=== PATIENT | female | born 1935 | race Caucasian/White ===

== ENCOUNTER → 2016-10-08 09:36 | Outpatient (CLI) | payer MEDICARE, BC ==
[2013-11-07 11:14] VITALS: BMI 24.4
[~2016-10-08 09:36] MED LIST: ADVAIR 100/501 DISK INH; ATIVAN1 MG PO; COUMADIN2.5 MG PO; COUMADIN5 MG PO; COZAAR50 MG PO; DUONEB 2.5-0.5 M3 ML UPD; LASIX40 MG PO; MICRO-K10 MEQ PO; MONODOX100 MG PO; MULTAQ400 MG PO; PRAVACHOL40 MG PO; PREDNISONE2.5 MG PO; RYTHMOL150 MG PO; STERAPRED DS 1210 MG PO
== END | disposition home or self-care (01) ==
LOC: D.RT 09:36
DX: J44.9 Chronic obstructive pulmonary disease, unspecified (principal)

== ENCOUNTER → 2017-01-08 12:26 | Outpatient (CLI) | payer MEDICARE, BC ==
[2013-11-07 11:14] VITALS: BMI 24.4
== END | disposition home or self-care (01) ==
LOC: D.US 01-07 13:30
DX: I65.23 Occlusion and stenosis of bilateral carotid arteries (principal)

== ENCOUNTER → 2017-05-01 15:28 | Outpatient (CLI) | payer MEDICARE, BC ==
[2013-11-07 11:14] VITALS: BMI 24.4
== END | disposition home or self-care (01) ==
LOC: D.CT 15:00
DX: I73.9 Peripheral vascular disease, unspecified (principal)

== ENCOUNTER 2017-05-08 09:21 | Outpatient (CLI) | payer MEDICARE, BC ==
--- NOTE | ~2017-05-08 | HEMODYNAMI ---
PATIENT:VANNESSA HANSEN MEDICAL RECORD: [id number] : 33 LOCATION:D.CAT ADMISSION DATE: 05/08/17 Generatedon:05/08/201712:54 Patient name: VANNESSA HANSEN Patient #: [id number] SSN: D OB: 1935 Date of study: 05/08/2017 Page: Of Hemodynamic Procedure Report Patient Data Patient Demographics Procedure consent was obtained First Name: VANNESSA Gender: Female Last Name: TYRONE : 1935 Middle Initial: S Age: 81 year(s) Patient #: [id number] Race: Unknown Additional ID: [id number] Contact details [address]: [address] [place] [address] State: [place] City: [place] Zip code: [address] Past Medical History Allergies Allergen Reaction Date Comments Reported Other allergy 05/08/2017 Nipride, Pravastatin, Codeine, Actonel Admission Admission Data Admission Date: 05/08/2017 Admission Time: 9:21 Height (in.): 65 BSA: 1.6 (m2) Height (cm.): 165.1 BMI: 20.3 (kg/m2) Weight (lbs.): 122 Weight (kg.): 55.34 Lab Results Lab Result Date: 05/08/2017 Lab Result Time: 0:00 Coagulation Name Units Result Min Max INR units 0.92 --(*---)-- 0.85 1.17 PT sec 12.2 --(*---)-- 11.6 15 Procedure Procedure Types Cath Procedure Miscellaneous Procedures Moderate Sedation up to 15 minutes Peripheral Cath Diagnostic Procedure Cath Peripheral Vrvkp-Inprczc-Enx-Off Peripheral vascular Intervention Stent Stent-Fem/Popw/plasty Procedure Description Procedure Date Procedure Date: 05/08/2017 Procedure Start Time: 12:21 Procedure End Time: 12:49 Procedure Staff Name Function Ángel Self MD Performing Physician Mart Carr RT Scrub Julio Balbuena RN Nurse Alona Myles RT Monitor Procedure Data Cath Procedure Fluoroscopy Diagnostic fluoroscopy Total fluoroscopy Time: time: 10.3 min 10.3 min Diagnostic fluoroscopy Total fluoroscopy dose: 167 dose: 167 mGy mGy Contrast Material Contrast Material Type Amount (ml) Isovue 300 85 Entry Location Entry Primary Successful Side Size Upsize Upsize Entry Closure Succes sful Closure Location (Fr) 1 (Fr) 2 (Fr) Remarks Device Remarks Femoral Right 5 Fr 6 Fr 6 Fr Exoseal artery Short Long Estimated blood loss: 10 ml Diagnostic catheters Device Type Used For End Catheter Placement Cordis Tempo 5Fr UF Procedure catheter Diagnostic Infinity 5Fr MPA-2 catheter Procedure Complications No complications Procedure Medications Medication Administration Route Dosage Oxygen NC 2 l/min Heparin Flush Bag added to field 2 bags (1000units/500ml NS) 0.9% NaCl I.V. 100 ml/hr Fentanyl I.V. 25 mcg Versed I.V. 0.5 mg Versed I.V. 0.5 mg Integrilin (Bolus I.V. 5 ml 2mg/ml) Heparin Bolus I.V. 4000 units Plavix P.O. 600 mg Hemodynamics Rest BSA: 1.6 (m2) O2 Consumption: Estimated: 134.96 (ml/min) O2 Consumption indexed: Estimated:84.35 (ml/min/m) Heart Rate: 56 (bpm) Snapshots Pre Cath Intra NCS Post Cath Vital Signs Time Heart Resp SPO2 NIBP (mmHg) Rhythm Pain Sedation Rate (ipm) (%) Status Level (bpm) 12:09:02 78 17 96 166/72(132) NSR 0 (11) 10(A) , No pain 12:13:22 75 20 98 174/76(128) NSR 0 (11) 10(A) , No pain 12:17:49 70 18 95 141/55(99) NSR 0 (11) 10(A) , No pain 12:22:09 68 17 100 134/57(100) NSR 0 (11) 9(A) , No pain 12:26:25 69 17 100 132/55(92) NSR 0 (11) 9(A) , No pain 12:30:41 70 17 100 135/54(86) NSR 0 (11) 9(A) , No pain 12:34:59 68 17 100 128/51(96) NSR 0 (11) 9(A) , No pain 12:39:15 68 19 100 128/51(89) NSR 0 (11) 9(A) , No pain 12:43:31 68 17 100 125/49(95) NSR 0 (11) 9(A) , No pain 12:47:45 70 21 100 138/51(99) NSR 0 (11) 9(A) , No pain Medications Time Medication Route Dose Verified Delivered Reason Notes Effectiveness by by 12:13:16 Oxygen NC 2 Ángel Kim Per physician l/min Clair Balbuena RN 12:13:27 Heparin Flush added 2 Ángel Kim used for Bag to bags Clair Balbuena RN procedure (1000units/500ml field NS) 12:13:38 0.9% NaCl I.V. 100 Ángel Kim Per physician ml/hr Clair Balbuena RN 12:21:05 Fentanyl I.V. 25 Ángel Kim for sedation mcg Clair Balbuena RN 12:21:13 Versed I.V. 0.5 Ángel Kim for sedation mg Clair Balbuena RN 12:27:35 Versed I.V. 0.5 Ángel Kim for sedation mg Clair Balbuena RN 12:27:50 Integrilin I.V. 5 ml Ángel Kim for (Bolus 2mg/ml) Clair Balbuena RN antiplatelet therapy 12:29:36 Heparin Bolus I.V. 4000 Ángel Kim for units Clair Balbuena RN anticoagulation 12:49:03 Plavix P.O. 600 Ángel Kim for mg Clair Balbuena RN antiplatelet therapy Procedure Log Time Note 11:45:19 Julio Balbuena RN sent for patient. Start room use. 11:55:16 Patient Height : 165.1 inches 11:55:22 Patient Weight : 55.34 lbs 11:56:16 Diagnostic Cath status Elective 11:56:20 Time tracking: Regular hours 11:56:25 Plan of Care:Hemodynamics will remain stable., Cardiac rhythm will remain stable., Comfort level will be maintained., Respiratory function will remain adequate., Patient/ family verbilizes understanding of procedure., Procedure tolerated without complication., Recovers from procedure without complications.. 11:59:49 Patient received from Pre/Post Procedure Room to CCL 2 Alert and oriented. Tansferred to table in Supine position. 11:59:51 Warm blankets applied, and luis armando hugger turned on for patient comfort. 11:59:51 Correct patient and procedure confirmed by team. 11:59:53 Signed procedure consent form obtained from patient. 11:59:53 ECG and BP/O2 sat monitors applied to patient. 12:05:44 Lab Result : INR 0.92 units 12:05:44 Lab Result : PT 12.2 sec 12:07:52 Vital chart was started 12:07:53 Baseline sample Acquired. 12:08:00 Rhythm: sinus rhythm 12:08:02 Full Disclosure recording started 12:08:26 H&P Date Dictated: 05/02/2017 Within 30 days and on chart., H&P Addendum completed by physician on day of procedure. (MUST COMPLETE FOR ALL OUTPATIENTS). 12:08:39 Pre-procedure instructions explained to patient. 12:08:42 Family in waiting room. 12:08:44 Patient NPO since Midnight. 12:09:32 Patient allergic to Other allergyNipride, Pravastatin, Codeine, Actonel 12:13:16 Oxygen 2 l/min NC was administered by Julio Balbuena RN; Per physician; 12:13:27 Heparin Flush Bag (1000units/500ml NS) 2 bags added to field was administered by Julio Balbuena RN; used for procedure; 12:13:38 0.9% NaCl 100 ml/hr I.V. was administered by Julio Balbuena RN; Per physician; 12:15:49 Is the patient allergic to Iodine/contrast media? No. 12:15:51 Was the patient premedicated? Yes 12:15:59 Is patient on blood thinner?Yes 12:16:03 Patient diabetic? No. 12:16:15 Snore? No 12:16:39 Airway obstruction? Yes COPD 12:16:45 Dentures? Yes OUT 12:16:56 IV patent on arrival in left hand with 0.9% NaCl at [facility]. 12:17:04 Lab results completed and on chart. 12:17:08 Bilateral groins area was prepped with chlora-prep and draped in sterile fashion 12:17:09 Alarms reviewed by R. N. 12:17:11 Sharps counted by scrub and verified by R.N. 12:17:12 Physician paged 12:17:15 Physician arrived 12::34 --------ALL STOP TIME OUT------ 12::35 Final Timeout: patient, procedure, and site verified with staff and physician. All members of the team are in agreement. 12:19:37 Bilateral groins site verified by team. 12:19:43 Sedation plan: IV Moderate Sedation Versed, Fentanyl 12:21:05 Fentanyl 25 mcg I.V. was administered by Julio Balbuena RN; for sedation; 12:21:13 Versed 0.5 mg I.V. was administered by Julio Balbuena RN; for sedation; 12:21:24 Use device set IR Diagnostic 12:21:30 Procedure started. 12:21:42 Local anesthetic to right femoral artery with Lidocaine 2% by Ángel Self MD.INITIAL ACCESS ONLY 12:21:54 Use device set Femoral Dx 12:21:58 Tegaderm 4 x 4 opened to sterile field. 12:22:01 Acist Manifold opened to sterile field. 12:22:02 Acist Hand Control opened to sterile field. 12:22:06 St Alvaro 260cm J .035 wire opened to sterile field. 12:22:08 Terumo 5Fr Meta Sheath opened to sterile field. 12:22:13 Medline Cath Pack opened to sterile field. 12:22:20 Bag Decanter opened to sterile field. 12:22:30 Acist Syringe opened to sterile field. 12:23:12 A 5 Fr sheath was inserted into the Right Femoral artery 12:23:16 J wire advanced. 12:23:35 A Codeship 5Fr UF catheter was advanced over the wire and used for Procedure. 12:23:50 Abdominal angiogram w/ runoff was performed. 12:23:54 Left leg runoff performed. 12:23:57 Right leg runoff performed. 12:25:23 Catheter removed. 12:25:24 Proceeding to intervention. 12:25:47 Sheath upsized to a 6 Fr Short. 12:26:50 Terumo 6Fr Meta Destination Sheath opened to sterile field. 12:27:35 Versed 0.5 mg I.V. was administered by Julio Balbuena RN; for sedation; 12::35 Terumo 6Fr Meta Sheath opened to sterile field. 12:27:35 Merit BasixCompak Inflation Kit opened to sterile field. 12:27:50 Integrilin (Bolus 2mg/ml) 5 ml I.V. was administered by Julio Balbuena RN; for antiplatelet therapy; 12:28:25 Terumo ANGLE 260cm glide wire opened to sterile field. 12:29:36 Heparin Bolus 4000 units I.V. was administered by Julio Balbuena RN; for anticoagulation; 12:29:52 A Diagnostic Infinity 5Fr MPA-2 catheter was advanced over the wire and used for .used to go over the horn and left leg angiography 12:30:47 Terumo TORQUE DEVICE PLASTIC .038 opened to sterile field. 12:31:35 Catheter removed. 12:31:49 Sheath upsized to a 6 Fr Long. 12:32:47 Soundflavor Choice PT Extra Support J 300cm .014 gu opened to sterile field. 12:32:51 Wire removed. 12:33:07 choice pt wire advanced. 12:36:53 Inflation number: 1 A Saber 5.0 X 4 X 150 balloon was prepped and advanced across the Distal Superficial Femoral, Left, then inflated to 5 MATILDA for 0:52 (min:sec). 12:37:15 Inflation number: 2 The Saber 5.0 X 4 X 150 balloon was reinflated across the Distal Superficial Femoral, Left, to 5 MATILDA for 0:15 (min:sec). 12:39:00 Balloon removed. 12:41:10 Cordis SMART 6 X 120 X 120 stent was deployed across Distal Superficial Femoral, Left . 12:41:16 Stent removed. 12:42:26 Inflation number: 3 The Saber 5.0 X 4 X 150 balloon was reinflated across the Distal Superficial Femoral, Left, to 13 MATILDA for 0:00 (min:sec). 12:42:32 Inflation number: 4 The Saber 5.0 X 4 X 150 balloon was reinflated across the Distal Superficial Femoral, Left, to 7 MATILDA for 0:00 (min:sec). 12:43:08 Balloon removed. 12:43:10 Wire removed. 12:43:26 Cordis 6Fr Exoseal opened to sterile field. 12:44:32 Sheath removed intact; hemostasis achieved with Exoseal to the Right Femoral artery. 12:44:52 Procedure ended.(Physican Out) 12:45:02 Fluoroscopy time 10.30 minutes. 12:45:59 Fluoroscopy dose: 167 mGy 12:45:59 Flurop Dose total: 167 12:46:03 Contrast amount:Isovue 300 85ml. 12:46:04 Sharps counted by scrub and verified by R.N. 12:46:07 Insertion/operative site no bleeding no hematoma. 12:46:29 Post-op/insertion site Right Femoral artery dressed using a 4 x 4 and Tegaderm. 12:46:34 Post right femoral artery:stable 12:46:36 Post Procedure Pulses reassessed and unchanged 12:46:46 Estimated blood loss: 10 ml 12:46:47 Post procedure instruction explained to patient.Patient verbalizes understanding. 12:48:23 Procedure type changed to Cath procedure, Miscellaneous Procedures, Moderate Sedation up to 15 minutes, Peripheral Cath Diagnostic Procedure, Cath Peripheral, Mpgcn-Hpapetc-Rlo-Off, Peripheral vascular Intervention, Stent, Stent-Fem/Popw/plasty 12:48:26 Procedure and supply charges have been captured, reviewed, submitted and are correct. 12:48:56 Procedure Complication : No complications 12:49:01 Vital chart was stopped 12:49:02 See physician's report for complete and final results. 12:49:03 Plavix 600 mg P.O. was administered by Julio Balbuena RN; for antiplatelet therapy; 12:49:04 Report given to Pre/Post Procedure Room. 12:49:07 Patient transfered to Pre/Post Procedure Room with Stretcher. 12:49:09 Procedure ended. 12:49:09 Full Disclosure recording stopped 12:49:12 End room use (Document Last) Intervention Summary Intervention Notes Time ActionType Lesion and Equipment Action# Pressure Duration Attributes Used 12:36:53 Inflate Distal Saber 5.0 1 5 00:52 balloon Superficial X 4 X 150 Femoral, balloon Left 12:37:15 Reinflate Distal Saber 5.0 2 5 00:15 balloon Superficial X 4 X 150 Femoral, balloon Left 12:41:10 Deploy self Distal Cordis 1 expanding Superficial SMART 6 X stent Femoral, 120 X 120 Left stent 12:42:26 Reinflate Distal Saber 5.0 3 13 00:00 balloon Superficial X 4 X 150 Femoral, balloon Left 12:42:32 Reinflate Distal Saber 5.0 4 7 00:00 balloon Superficial X 4 X 150 Femoral, balloon Left Device Usage Item Name Manufacture Quantity Catalog Number Hospital Part Current Minim al Lot# / Charge Number Stock Stock Serial# Code Tegaderm 4 3M 1 [id number] 923498 486350 5 x 4 Acist Acist 1 79406 708005 097920 617389 5 Manifold Medical Systems Inc Acist Hand Acist 1 20160 785028 088452 980510 [address] Alvaro 1 [id number] 659575 982958 463973 30 260cm J .035 wire Terumo 5Fr Terumo 1 [id number] 304689 109884 470541 40 Meta Sheath Medline Cardinal 1 [id number] 234544 88084 220020 5 Cath Pack Health Bag Microtek 1 2002S 736491 86572 623805 5 Decanter Medical Inc. Acist Acist 1 71571 462494 840614 707295 20 Syringe Medical Systems Inc Cordis Cardinal 1 [id number] 073652 360107 071278 10 Tempo 5Fr Health UF catheter Terumo 6Fr Terumo 1 RSR01 346092 95648 881322 5 Meta Destination Sheath Terumo 6Fr Terumo 1 [id number] 431914 045979 333625 40 Meta Sheath Merit Merit 1 [id number] 945006 316065 317558 15 LoveThatFitixGamma 2 Robotics Medical Inflation Kit Terumo Terumo 1 [id number] 616723 204625 741565 5 ANGLE 260cm glide wire Diagnostic Cardinal 1 [id number] 154274 470257 917610 5 Infinity Health 5Fr MPA-2 catheter Terumo Hewett 1 TD01 137517 064539 520136 5 TORQUE Scientific DEVICE PLASTIC .038 Hewett Sci Hewett 1 [id number] 705380 393111 887646 5 Choice PT Scientific Extra Support J 300cm .014 gu Saber 5.0 X Cardinal 1 [id number] 514657 099923 5 4 X 150 Health balloon Cordis Cardinal 1 [id number] 084443 926774 0 [id number] SMART 6 X Health 120 X 120 stent Cordis 6Fr Cardinal 1 [id number] 236317 010770 123547 10 Exoseal Health Signature Audit [place] Stage Time Signature Unsigned Intra-Procedure 05/08/2017 Alona Bueno 12:54:19 PM RT(R) Signatures Monitor : Alona Bueno Signature : RT Date : Time : [place] [id number] [place] [address]
[2017-05-08] MEDS ORDERED: BUMEX 1 MG TAB1 MG PO (10:06)
[2017-05-08] MEDS ORDERED: BETAPACE 80 MG80 MG PO (10:07)
[2017-05-08] MEDS ORDERED: LANOXIN125 MCG PO (10:07)
[2017-05-08] MEDS ORDERED: ELAVIL10 MG PO (10:08)
[2017-05-08] MEDS ORDERED: METOLAZONE2.5 MG PO (10:08)
[2017-05-08 10:16] VITALS: BP 181/63; BMI 21.6
[2017-05-08 10:57] LABS: BASOPHILS 0.3 % (0-2); EOSINOPHILS 1.5 % (0-7); HEMATOCRIT 41.9 % (36.0-48.0); HEMOGLOBIN 14.1 g/dL (12-16); IMMATURE GRANULOCYTES 0.2 % (0-5); MCHC 33.7 g/dL (31.0-37.0); MCV 89.1 fL (80.0-100.0); MONOCYTES 7.8 % (2-11); NEUTROPHILS 72.2 % (40-80); RDW 13.1 % (11.5-14.5); WBC 10.6 10x3/uL (4.8-10.8)
[2017-05-08 11:03] LABS: INR 0.92 (0.85-1.17); PROTIME 12.2 SECONDS (11.6-15.0)
[2017-05-08 11:08] LABS: ANION GAP 9.3 mmol/L (8-16); CARBON DIOXIDE 32.3 mmol/L (21.0-32.0); CREATININE - SERUM 0.9 mg/dL (0.6-1.3); POTASSIUM - SERUM 3.6 mmol/L (3.5-5.1)
[2017-05-08 11:12] LABS: PLATELET COUNT 282 10x3/uL (130-400)
[2017-05-08] MEDS ORDERED: PLAVIX75 MG PO (13:04)
--- NOTE | 2017-05-08 13:15 | NUR ---
1315 RECEIVED PT FROM DISTILLERY MILLER HELPER, PT IS DRY HEAVING, PRESSURE HELD AT CATH SITE BY MASTER CONTROL SUPERVISOR. PT DENIES ANY C/O CHEST PAIN. DRESSING TO RIGHT GROIN REMAINS CDI. DAUGHTERS AT BEDSIDE.
--- NOTE | 2017-05-08 13:47 | NUR ---
1332 ZOFRAN 4 MG IV FOR NAUSEA, DRY HEAVING. RIGHT GROIN REMAINS STABLE WITH NO BLEEDING OR HEMATOMA NOTED. PEDAL PULSES PRESENT X4 BY DOPPLER. DAUGHTERS AT BEDSIDE, CALL LIGHT IN REACH.
--- NOTE | 2017-05-08 13:50 | NUR ---
1350 PT STATES NAUSEA IMPROVING. DRESSING TO RIGHT GROIN IS CDI, AREA IS SOFT AND NONTENDER. PULSES PRESENT X4 BY DOPPLER. PT STATES WANTS TO TRY A NAP. CALL LIGHT IN REACH. NO FAMILY AT BEDSIDE AT THIS TIME.
--- NOTE | 2017-05-08 14:15 | NUR ---
1415 PT SLEEPING, AWAKENS WITH GROIN CHECK, DENIES ANY C/O. DRESSING TO RIGHT GROIN IS CDI, AREA IS SOFT AND NONTENDER. PEDAL PULSES PRESENT BY DOPPLER. PT STATES NAUSEA IMPROVED. CALL LIGHT IN REACH.
--- NOTE | 2017-05-08 14:58 | NUR ---
1450 PT SLEEPING, RR EVEN AND UNLABORED. DRESSING RIGHT GROIN IS CDI, AREA IS SOFT AND NONTENDER. NO FAMILY AT BEDSIDE, CALL LIGHT IS IN REACH.
--- NOTE | 2017-05-08 15:23 | NUR ---
1515 DRESSING CDI RIGHT GROIN, AREA SOFT AND NONTENDER. PT DENIES ANY C/O. VSS. RR EVEN AND UNLABORED. CALL LIGHT IN REACH.
--- NOTE | 2017-05-08 16:00 | NUR ---
1600 PT SLEEPING, DRESSING TO RIGHT GROIN IS CDI, AREA IS SOFT WITH NO HEMATOMA NOTED. VSS, RR EVEN AND UNLABORED, CALL LIGHT IN REACH. NO FAMILY AT BEDSIDE.
--- NOTE | 2017-05-08 16:30 | NUR ---
1630 PT AWAKENED, REQUESTS BEDPAN AND PT VOIDED APPROX 500 CC CLEAR YELLOW URINE USING BEDPAN.
--- NOTE | 2017-05-08 16:40 | NUR ---
HOB ELEVATED 45 DEGREES, SANDWICH AND PO FLUIDS SERVED. PT DENIES ANY C/O NAUSEA AT THIS TIME. DRESSING TO RIGHT GROIN IS CDI, AREA IS SOFT WITH NO HEMATOMA NOTED.
--- NOTE | 2017-05-08 16:45 | NUR ---
9955 PT'S DAUGHTER AT BEDSIDE. DC INSTRUCTIONS REVIEWED WITH PT AND DAUGHTER WHO VERBALIZE UNDERSTANDING. PT DENIES ANY C/O CHEST PAIN OR NAUSEA. STATES SOME TENDERNESS TO CATH SITE, DRESSING REMAINS CDI, AREA IS SOFT WITH NO HEMATOMA NOTED.
--- NOTE | 2017-05-08 17:19 | NUR ---
1710 NURSE ASSISTED PT WITH DRESSING FOR DC TO HOME. DRESSING TO RIGHT GROIN IS CDI, AREA IS SOFT WITH NO HEMATOMA NOTED. PT DENIES ANY C/O CHEST PAIN OR NAUSEA. PT ESCORTED TO PRIVATE AUTO VIA WC BY NURSE WTIH DAUGHTER DRIVING HER HOME.
--- NOTE | 2017-05-10 13:09 | OP ---
PATIENT NAME: VANNESSA HANSEN MEDICAL RECORD: [id number] :33 LOCATION:D.CAT ADMISSION DATE: SURGEON: SHAYNA NGO MD DATE OF OPERATION: 05/08/2017 PROCEDURES: 1. Stent placement SFA, left. 2. CLERK RATING to SFA, left. 3. Aortofemoral runoff. 4. Abdominal aortography. INDICATION: Claudication and peripheral vascular disease. PROCEDURE IN DETAIL: After informed consent was obtained and after detailed explanation of risks, benefits as well as alternative therapies, the patient elected to proceed with angiogram and angioplasty. The right femoral area was prepped and draped in normal sterile fashion. The right femoral artery was cannulated via modified Seldinger technique with placement of 6-Northern Irish sheath. All catheters was exchanged through this sheath. At the end of the case, all catheters were removed, sheaths also removed. Hemostasis was obtained via ExoSeal and direct compression. She tolerated the procedure well with no complication, returned back to the room in stable hemodynamic condition. FINDINGS: The abdominal aortography was performed. The catheter was pulled down for aortofemoral runoff. Abdominal aortography reveals no significant abdominal aortic disease. No dissection or aneurysm formation. RIGHT LEG: A. Iliac: The common internal and external iliacs have moderate irregularities, but no flow-limiting stenosis. B. Femoral system: The common and deep femoral are widely patent. Superficial femoral has multiple areas of 90% stenosis. C. Popliteal and infrapopliteal vessels are patent giving 3-vessel runoff to the foot, although mildly diffusely diseased. LEFT LEG: A. Iliac. The common iliac has an 80% stenosis, otherwise the iliacs have mild irregularities. B. Femoral system: The common and deep femoral are widely patent. The superficial femoral has a 99% stenosis as well as a 90% stenosis times 2 in the distal vessel. C. Popliteal and infrapopliteal vessels are widely patent with good 3-vessel runoff to the foot. CLERK RATING STENT OF THE LEFT SFA: SFA was addressed with a 5.0 balloon yielding suboptimal result with severe intimal dissection. Stenting was undertaken with a 6 x 120 SMART stent. Result was 0% residual stenosis. OVERALL IMPRESSION: Successful CLERK RATING stent of the left SFA going from 99% initial stenosis to 0% residual stenosis. PLAN: For CLERK RATING stent of the right SFA in the near future and addressing the left iliac at that time. TRANSINT:[id number] Voice Confirmation ID: [id number] DOCUMENT ID: [id number] OPERATIVE REPORT [id number] VANNESSA HANSEN JEFFREY MD at 1309 CC: [id number] DICTATION DATE: 05/08/17 1248 COMMERCIAL INTERN: 05/08/17 1301 DEP CLI 05/08/17 [place] [id number] [place] [id number]
[2017-09-16] MEDS ORDERED: ZOCOR10 MG PO (10:23)
[2017-09-16] MEDS ORDERED: SINGULAIR10 MG PO (17:16)
== END 2017-05-08 17:10 | disposition home or self-care (01) ==
LOC: D.CATH 09:21
PROVIDERS: Internal Medicine Interventional Cardiology
DX: I70.212 Atherosclerosis of native arteries of extremities with intermittent claudication, left leg (principal); Z01.812 Encounter for preprocedural laboratory examination

== ENCOUNTER → 2017-05-15 09:34 | Outpatient (CLI) | payer MEDICARE, BC ==
--- NOTE | ~2017-05-15 | HEMODYNAMI ---
PATIENT:VANNESSA HANSEN MEDICAL RECORD: [id number] : 33 LOCATION:[facility] ADMISSION DATE: 05/15/17 Generatedon:05/15/201713:12 Patient name: VANNESSA HANSEN Patient #: [id number] SSN: D OB: 1935 Date of study: 05/15/2017 Page: Of Hemodynamic Procedure Report Patient Data Patient Demographics Procedure consent was obtained First Name: VANNESSA Gender: Female Last Name: TYRONE : 1935 Middle Initial: S Age: 81 year(s) Patient #: [id number] Race: Unknown Additional ID: [id number] Contact details [address]: [address] [place] [address] State: [place] City: [place] Zip code: [address] Past Medical History Allergies Allergen Reaction Date Comments Reported Other allergy 05/08/2017 Nipride, Pravastatin, Codeine, Actonel Admission Admission Data Admission Date: 05/15/2017 Admission Time: 9:34 Admit Source: Other Lab Results Lab Result Date: 05/15/2017 Lab Result Time: 0:00 Biochemistry Name Units Result Min Max BUN mg/dl 24 --(----)-* 7 18 Creatinine mg/dl 1 --(--*-)-- 0.6 1.3 CBC Name Units Result Min Max Hemoglobin g/dl 13.7 --(*---)-- 13.5 17.5 Procedure Procedure Types Cath Procedure Peripheral vascular Intervention Stent Stent-Fem/Popw/plasty Procedure Description Procedure Date Procedure Date: 05/15/2017 Procedure Start Time: 12:35 Procedure End Time: 13:09 Procedure Staff Name Function Ángel Self MD Performing Physician Mart Carr RT Scrub Julio Balbuena RN Nurse Brenda Palafox RT Monitor Madison Duffy RT Monitor Rodrigue Maria RT Monitor Procedure Data Cath Procedure Fluoroscopy Diagnostic fluoroscopy Total fluoroscopy Time: 12 time: 12 min min Diagnostic fluoroscopy Total fluoroscopy dose: 85 dose: 85 mGy mGy Contrast Material Contrast Material Type Amount (ml) Isovue 300 86 Entry Location Entry Primary Successful Side Size Upsize Upsize Entry Closure Succes sful Closure Location (Fr) 1 (Fr) 2 (Fr) Remarks Device Remarks Femoral Left 6 Fr 6 Fr 6 Fr Exoseal artery Short Long Short Estimated blood loss: 10 ml Diagnostic catheters Device Type Used For End Catheter Placement Cordis Tempo 5Fr UF Procedure catheter Diagnostic Infinity 5Fr Procedure MPA-2 catheter Procedure Complications No complications Procedure Medications Medication Administration Route Dosage 0.9% NaCl I.V. 100 ml/hr Oxygen NC 2 l/min Heparin Flush Bag added to field 2 bags (1000units/500ml NS) Lidocaine 2% added to field 20 Versed I.V. 0.5 mg Fentanyl I.V. 25 mcg Heparin Bolus I.V. 4000 units Fentanyl I.V. 25 mcg Versed I.V. 0.5 mg Hemodynamics Rest HGB: 13.7 (g/dl) Heart Rate: 79 (bpm) Snapshots Pre Cath Intra NCS Post Cath Vital Signs Time Heart Resp SPO2 etCO2 NIBP (mmHg) Rhythm Pain Sedation Rate (ipm) (%) (mmHg) Status Level (bpm) 12:27:40 77 17 98 0 154/72(120) NSR 0 (11) 10(A) , No pain 12:32:23 73 16 99 0 122/53(90) NSR 0 (11) 10(A) , No pain 12:37:01 72 14 99 0 118/50(92) NSR 0 (11) 9(A) , No pain 12:41:38 73 16 98 0 119/53(92) NSR 0 (11) 9(A) , No pain 12:46:14 74 16 99 0 123/50(92) NSR 0 (11) 9(A) , No pain 12:50:53 66 17 99 0 126/49(101) NSR 0 (11) 9(A) , No pain 12:55:29 79 18 99 0 136/54(95) NSR 0 (11) 9(A) , No pain 13:00:08 74 16 98 0 139/58(99) NSR 0 (11) 9(A) , No pain 13:04:47 74 15 98 0 134/60(101) NSR 0 (11) 9(A) , No pain Medications Time Medication Route Dose Verified Delivered Reason Notes Effectiveness by by 12:31:10 0.9% NaCl I.V. 100 Dionte Dionte Per physician ml/hr Randal Tee RN RN 12:31:23 Oxygen NC 2 Dionte Dionte Per physician l/min Randal Tee RN RN 12:31:40 Heparin Flush added 2 Dionte Dionte used for Bag to bags Randal Tee procedure (1000units/500ml field RN RN NS) 12:31:53 Lidocaine 2% added 20ml Dionte Dionte for local to vial Randal Tee anesthetic field RN RN 12:35:25 Versed I.V. 0.5 Dionte Dionte for sedation mg Randal Tee RN RN 12:35:48 Fentanyl I.V. 25 Dionte Dionte for sedation mcg Randal Tee RN RN 12:43:17 Heparin Bolus I.V. 4000 Dionte Dionte for units Lormitchell Tee anticoagulation RN RN 12:56:22 Fentanyl I.V. 25 Dionte Dionte for sedation mcg Randal Tee RN RN 12:58:16 Versed I.V. 0.5 Dionet Dionte for sedation mg Randal Tee RN air brake worker Log Time Note 11:45:41 Julio Balbuena RN sent for patient. Start room use. 12:17:18 Informed consent obtained and on chart 12:17:38 Admit Source: Other 12:17:40 Diagnostic Cath status Elective 12:17:42 Time tracking: Regular hours 12:17:47 Plan of Care:Hemodynamics will remain stable., Cardiac rhythm will remain stable., Comfort level will be maintained., Respiratory function will remain adequate., Patient/ family verbilizes understanding of procedure., Procedure tolerated without complication., Recovers from procedure without complications.. 12:17:51 Patient received from Pre/Post Procedure Room to CCL 1 Alert and oriented. Tansferred to table in Supine position. 12:17:52 Warm blankets applied, and luis armando hugger turned on for patient comfort. 12:17:53 Correct patient and procedure confirmed by team. 12:17:53 ECG and BP/O2 sat monitors applied to patient. 12:26:50 Vital chart was started 12:26:53 Full Disclosure recording started 12:26:57 H&P Date Dictated: 05/15/2017 Within 30 days and on chart., H&P Addendum completed by physician on day of procedure. (MUST COMPLETE FOR ALL OUTPATIENTS). 12::59 Pre-procedure instructions explained to patient. 12::59 Pre-op teaching completed and patient verbalized understanding. 12:27:05 Family unavailable. 12:27:07 Patient NPO since Midnight. 12:27:12 Is the patient allergic to Iodine/contrast media? No. 12:27:13 Was the patient premedicated? No 12:27:14 Is patient on blood thinner?Yes 12:27:18 ACC The patient was administered the following blood thiners within the last 24 hours: ACCPlavix 12:27:25 Patient diabetic? No. 12:27:28 Previous problem with sedation/anesthesia? No ? 12:27:35 Snore? No 12:27:36 Sleep apnea? Yes 12:27:37 Deviated septum? No 12::38 Opens mouth fully? Yes 12:27:39 Sticks out tongue? Yes 12:27:45 Airway obstruction? Yes copd 12:27:49 Dentures? Yes in tight 12:27:55 Pre procedure: right dorsailis pedis pulse 1+ Palpable, but thready & weak; easily obliterated 12:27:57 Pre procedure: left dorsailis pedis pulse 1+ Palpable, but thready & weak; easily obliterated 12::59 Patient pain scale 0/10 ?. 12:28:07 IV patent on arrival in left forearm with 0.9% NaCl at [facility]. 12:28:27 Lab Result : BUN 24 mg/dl 12:28:27 Lab Result : Creatinine 1 mg/dl 12::27 Lab Result : Hemoglobin 13.7 g/dl 12::31 Lab results completed and on chart. 12::34 Bilateral groins area was prepped with chlora-prep and draped in sterile fashion 12:28:36 Alarms reviewed by R. N. 12:28:36 Sharps counted by scrub and verified by R.N. 12::38 Physician arrived 12::38 --------ALL STOP TIME OUT------ 12::39 Final Timeout: patient, procedure, and site verified with staff and physician. All members of the team are in agreement. 12:28:40 Bilateral groins site verified by team. 12::43 Physical assessment completed. ASA score P 2 - A patient with mild systemic disease as per Ángel Self MD. 12::47 Sedation plan: IV Moderate Sedation Versed, Fentanyl 12::57 Use device set Femoral PCI 12::58 Acist Syringe opened to sterile field. 12::58 Acist Hand Control opened to sterile field. 12::58 Bag Decanter opened to sterile field. 12::59 Medline Cath Pack opened to sterile field. 12::59 Terumo 6Fr Chula Sheath opened to sterile field. 12:29:00 St Alvaro 260cm J .035 wire opened to sterile field. 12::00 Merit BasixCompak Inflation Kit opened to sterile field. 12:: Acist Manifold opened to sterile field. 12:: Tegaderm 4 x 4 opened to sterile field. 12:31:10 0.9% NaCl 100 ml/hr I.V. was administered by Dionte Tee RN; Per physician; 12:31:15 Baseline sample Acquired. 12:31:23 Oxygen 2 l/min NC was administered by Dionte Tee RN; Per physician; 12:31:40 Heparin Flush Bag (1000units/500ml NS) 2 bags added to field was administered by Dionte Tee RN; used for procedure; 12::53 Lidocaine 2% 20ml vial added to field was administered by Dionte Tee RN; for local anesthetic; 12:34:27 Procedure started. 12:35:00 Terumo TORQUE DEVICE PLASTIC .038 opened to sterile field. 12:35:01 Terumo ANGLE 260cm glide wire opened to sterile field. 12:35:02 Terumo 6Fr [place]ula Destination Sheath opened to sterile field. 12:35:08 Zero performed for pressure channel P1 12:35:25 Versed 0.5 mg I.V. was administered by Dionte Tee RN; for sedation; 12::43 Local anesthetic to left femerol artery with Lidocaine 2% by Ángel Self MD.INITIAL ACCESS ONLY 12:35:48 Fentanyl 25 mcg I.V. was administered by Dionte Tee RN; for sedation; 12:36:45 A 6 Fr Short sheath was inserted into the Left Femoral artery 12:37:01 A Tipstar 5Fr UF catheter was advanced over the wire and used for Procedure. 12:37:19 GLIDE wire advanced. 12:37:46 GLIDE WIRE ADVANCED AROUND THE HORN AND DOWN THE RIGHT LEG 12:38:44 Wire advanced across lesion. 12:39:07 Guide catheter removed. 12:39:26 Sheath upsized to a 6 Fr Long. 12:39:42 SHEATH ADVANCED AROUND THE HORN 12:40:31 A Diagnostic Infinity 5Fr MPA-2 catheter was advanced over the wire and used for Procedure. 12:41:16 Wire removed. 12:41:25 Catheter removed. 12:43:13 Terumo 5FR STRAIGHT 100CM glide catheter opened to sterile field. 12:43:17 Heparin Bolus 4000 units I.V. was administered by Dionte Tee RN; for anticoagulation; 12:43:22 [place] WhereNet Choice PT Extra Support J 300cm .014 gu opened to sterile field. 12:43:42 GLIDE CATHETER AND GLIDE WIRE ADVANCED 12:46:29 WIRE AND CATHETER ACROSS LESION. 12:46:50 WIRE EXCHANGED FOR CHOICE PT EXTRA SUPPORT 12:47:23 Catheter exchanged over wire. 12:49:03 Inflation number: 1 A Saber 5.0 x 8 x 150 balloon was prepped and advanced across the Mid Superficial Femoral, Right, then inflated to 9 MATILDA for 0:10 (min:sec). 12:49:21 MULTIPLE INFLATIONS MADE AT 11ATMS 12:51:49 Cordis SMART 6 X 150 X 120 stent was deployed across Mid Superficial Femoral, Right . 12:51:54 Stent catheter was removed intact over wire. 12:54:57 Cordis SMART 6 x 100 x 120 stent was deployed across Mid Superficial Femoral, Right . 12:55:02 Stent catheter was removed intact over wire. 12:55:25 Inflation number: 2 The Saber 5.0 x 8 x 150 balloon was reinflated across the Mid Superficial Femoral, Right, to 13 MATILDA for 0:10 (min:sec). 12:55:38 MULTIPLE INFLATIONS MADE AT 13ATMS 12:56:22 Fentanyl 25 mcg I.V. was administered by Dionte Tee RN; for sedation; 12:58:16 Versed 0.5 mg I.V. was administered by Dionte Tee RN; for sedation; 12:58:46 Inflation number: 3 The Saber 5.0 x 8 x 150 balloon was reinflated across the Mid Superficial Femoral, Right, to 7 MATILDA for 0:10 (min:sec). 13:00:01 Balloon removed over the wire. 13:00:09 Cordis SMART Flex 5 X 30 X 120 stent was deployed across Mid Superficial Femoral, Right . 13:01:26 Stent catheter was removed intact over wire. 13:01:54 Wire removed. 13:02:07 Sheath upsized to a 6 Fr Short. 13:02:47 Cordis 6Fr Exoseal opened to sterile field. 13:03:05 Sheath removed intact; hemostasis achieved with Exoseal to the Left Femoral artery. 13:03:11 Procedure ended.(Physican Out) 13:03:33 Fluoroscopy time 12.00 minutes. 13:03:39 Fluoroscopy dose: 85 mGy 13:03:39 Flurop Dose total: 85 13:03:46 Contrast amount:Isovue 300 86ml. 13:03:53 Sharps counted by scrub and verified by R.N. 13:04:30 Post-op/insertion site Left Femoral artery dressed using a 4 x 4 and Tegaderm. 13:04:32 Post Procedure Pulses reassessed and unchanged 13:04:39 Post procedure: left dorsailis pedis pulse 1+ Palpable, but thready & weak; easily obliterated. 13:04:44 Post-procedure physical assessment completed. ASA score P 2 - A patient with mild systemic disease as per Ángel Self MD. 13:04:50 Post procedure rhythm: unchanged. 13:04:53 Estimated blood loss: 10 ml 13:04:55 Post procedure instruction explained to patient.Patient verbalizes understanding. 13:04:55 Patient needs reinforcement of post procedure teaching. 13:05:26 Procedure type changed to Cath procedure, Peripheral vascular Intervention, Stent, Stent-Fem/Popw/plasty 13:08:34 Procedure and supply charges have been captured, reviewed, submitted and are correct. 13:08:39 Procedure Complication : No complications 13:08:44 Vital chart was stopped 13:08:47 See physician's report for complete and final results. 13:09:02 Report given to Pre/Post Procedure Room. 13:09:07 Patient transfered to Pre/Post Procedure Room with Stretcher. 13:09:10 Procedure ended. 13:09:10 Full Disclosure recording stopped 13:09:18 End room use (Document Last) 13:11:20 Post left femerol artery:stable, oozing 13:11:34 Femstop placed over the left femerol artery at 180 mmHg. Hemostasis achieved. Intervention Summary Intervention Notes Time ActionType Lesion and Equipment Action# Pressure Duration Attributes Used 12:49:03 Inflate Mid Saber 5.0 1 9 00:10 balloon Superficial x 8 x 150 Femoral, balloon Right 12:51:49 Deploy self Mid Cordis 1 11 expanding Superficial SMART 6 X stent Femoral, 150 X 120 Right stent 12:54:57 Deploy self Mid Cordis 1 expanding Superficial SMART 6 x stent Femoral, 100 x 120 Right stent 12:55:25 Reinflate Mid Saber 5.0 2 13 00:10 balloon Superficial x 8 x 150 Femoral, balloon Right 12:58:46 Reinflate Mid Saber 5.0 3 7 00:10 balloon Superficial x 8 x 150 Femoral, balloon Right 13:00:09 Deploy self Mid Cordis 1 expanding Superficial SMART stent Femoral, Flex 5 X Right 30 X 120 stent Device Usage Item Name Manufacture Quantity Catalog Number Hospital Part Current Minim al Lot# / Charge Number Stock Stock Serial# Code Acist Acist 1 [id number] [id number] 280854 613162 20 Syringe Medical Systems Inc Acist Hand Acist 1 25028 059054 958849 626373 5 Control Medical Systems Inc Bag Microtek 1 2002S 092620 64828 784500 5 [place] Medline Cardinal 1 [id number] 258757 22714 316828 5 Cath Pack Health Terumo 6Fr Terumo 1 [id number] 946445 506870 562343 [address] St Alvaro 1 000766 734730 240683 047581 30 260cm J .035 wire Merit Merit 1 NB0038 707704 450796 292991 15 Opeepl Medical Inflation Kit Acist Acist 1 55658 782140 014564 425646 5 Manifold Medical Systems Inc Tegaderm 4 3M 1 1626W 225775 841620 847973 5 x 4 Terumo [place] 1 TD01 148655 714751 437545 5 TORQUE Scientific DEVICE PLASTIC .038 Terumo Terumo 1 [id number] 459127 632812 650586 5 ANGLE 260cm glide wire Terumo 6Fr Terumo 1 RSR01 510333 93540 167910 5 Chula Destination Sheath Cordis Cardinal 1 [id number] 613639 624539 088048 10 Tempo 5Fr Health UF catheter Diagnostic Cardinal 1 [id number] 961729 205977 114829 5 Infinity Health 5Fr MPA-2 catheter Terumo 5FR Terumo 1 CG506 682161 47846 316695 4 STRAIGHT 100CM glide catheter [place] Sci [place] 1 [id number] 201204 139024 292287 5 Choice PT Scientific Extra Support J 300cm .014 gu Saber 5.0 x Cardinal 1 [id number] 042102 964530 300490 5 8 x 150 Health balloon Cordis Cardinal 1 [id number] 261416 352017 0 [id number] SMART 6 X Health 150 X 120 stent Cordis Cardinal 1 [id number] 196813 152538 0 [id number] SMART 6 x Health 100 x 120 stent Cordis Cardinal 1 [id number] 803479 458040 0 19555 SMART Flex Health 5 X 30 X 120 stent Cordis 6Fr Cardinal 1 EX600 060088 798580 532370 10 [facility] Health Signature Audit [place] Stage Time Signature Unsigned Intra-Procedure 05/15/2017 Madison Duffy 1:12:06 PM RT(R) Signatures Monitor : Brenda Palafox RT Signature : Date : Time : Monitor : Madison Duffy Signature : RT Date : Time : Monitor : Rodrigue Maria RT Signature : Date : Time : [id number] [place] [address]
[~2017-05-15 09:34] MED LIST changes: +BETAPACE 80 MG80 MG PO; +BUMEX 1 MG TAB1 MG PO; +ELAVIL10 MG PO; +LANOXIN125 MCG PO; +METOLAZONE2.5 MG PO; +PLAVIX75 MG PO; +SINGULAIR10 MG PO; +ZOCOR10 MG PO
[2017-05-15 09:46] VITALS: BP 158/58; BMI 21.0
[2017-05-15 10:00] LABS: BASOPHILS 0.7 % (0-2); HEMATOCRIT 40.2 % (36.0-48.0); HEMOGLOBIN 13.7 g/dL (12-16); IMMATURE GRANULOCYTES 0.3 % (0-5); LYMPHOCYTES 14.2 % (15-50); MCH 30.2 pg (26.0-34.0); MCHC 34.1 g/dL (31.0-37.0); MCV 88.5 fL (80.0-100.0); MEAN PLATELET VOLUME 10.6 fL (7.4-10.4); MONOCYTES 10.8 % (2-11); RBC 4.54 10x6/uL (4.00-5.40); RDW 13.4 % (11.5-14.5); WBC 11.5 10x3/uL (4.8-10.8)
[2017-05-15 10:01] LABS: PLATELET COUNT 398 10x3/uL (130-400)
[2017-05-15 10:11] LABS: CALCIUM 10.7 mg/dL (8.5-10.1); CARBON DIOXIDE 34.2 mmol/L (21.0-32.0); POTASSIUM - SERUM 3.2 mmol/L (3.5-5.1)
[2017-05-15 11:12] LABS: INR 0.91 (0.85-1.17); PROTIME 12.1 SECONDS (11.6-15.0)
--- NOTE | 2017-05-15 13:30 | NUR ---
1330 RECIEVED TO ROOM VIA STRETCHER FROM CARDIOLOGY TECH WITH FEMSTOP TO L/GROIN NO BLEEDING NO HEMATOMA NOTED. REPORTS OF 3 STENTS TO THE SFA. VSS WITH PAIN RATED AT 4 TO BACK. ORDERS FOR MOTRIN
--- NOTE | 2017-05-15 13:50 | NUR ---
MOTRIN GIVEN ORDERED WITH SIPS OF WATER. VSS WITH FEMSTOP IN PLACE
--- NOTE | 2017-05-15 14:14 | NUR ---
PATIENT RESTLESS AND MOVING ABOUT. COMPLAINS OF PAIN TO BACK WITH FEMSTOP IN PLACE. REPOSITIONED BED WITH FEET ELEVATED. PATIENT WANTS FEMSTOP TAKEN OFF. PRESSURE RELEASED AT REQUEST
--- NOTE | 2017-05-15 14:31 | NUR ---
RESTING QUIETLY WITH EYES CLOSED VSS. FEMSTOP IN PLACE WITH NO PRESSURE AT SITE. NO BLEEDING NO HEMATOMA NOTED.
--- NOTE | 2017-05-15 15:18 | NUR ---
PATIENT RESTING QUIETLY WITH NO DISTRESS NOTED. VSS AND RESPONDS TO VERBAL WITH PAIN DENIED. 6 FR EXOSEAL R/GROIN CDI NO BLEEDING NO HEMATOMA NOTED.
--- NOTE | 2017-05-15 15:49 | NUR ---
L/GROIN CDI NO BLEEDING NO HEMATOMA NOTED. VSS WITH PAIN DENIED
--- NOTE | 2017-05-15 16:13 | NUR ---
NO CHANGE IN ASSESSMENT COMTINUES TO SLEEP NO DISTRESS
--- NOTE | 2017-05-15 16:27 | NUR ---
REPOSITIONED TO SITTING WITH HOB UP 45 DEGREES. CHEST PAIN IS DENIED AND VSS. 6 FR EXOSEAL L/GROIN CDI NO BLEEDING NO HEMATMOA NOTED.
--- NOTE | 2017-05-15 16:46 | NUR ---
PIV REMOVED WITH DRESSING APPLIED. 6 FR EXOSEAL L/GROIN REMAINS CDI NO BLEEDING NO HEMATOMA NOTED. PATIENT UP TO GET DRESSED FOR DISCHARGE HOME
--- NOTE | 2017-05-15 16:54 | NUR ---
VERBAL AND WRITTEN DISCHARGE GONE OVER WITH PATIENT AND FAMILY ALL VOICED UNDERSTANDING. L/GROIN REMAINS CDI NO BLEEDING NOTED. CHEST PAIN IS DENIED. LEFT VIA WC TO PARKING FOR TRANSPORT HOME WITH FAMILY
--- NOTE | 2017-05-31 16:56 | HP ---
PATIENT: VANNESSA LAKHANI MEDICAL RECORD: [id number] ACCOUNT: [id number] LOCATION:[facility] : 33 ADMISSION DATE: 05/15/17 HISTORY AND PHYSICAL EXAMINATION ADMITTING DIAGNOSES: 1. Claudication. 2. Recent ENTRY LEVEL SALES REPRESENTATIVE and stent of left SFA with concomitant disease of left iliac and right SFA. HISTORY OF PRESENT ILLNESS: Ms. Lakhani presented with claudication bilaterally, found to have SFA disease bilaterally as well as left iliac disease. She underwent successful ENTRY LEVEL SALES REPRESENTATIVE and stent of the left SFA. She is now being brought back for left iliac and right SFA intervention. PHYSICAL EXAMINATION: GENERAL APPEARANCE: Well-nourished, well-developed, appears stated age. Level of distress, comfortable. PSYCHIATRIC: Mental status, alert, normal affect. Orientation, oriented to time, place and person. EYES: Lids and conjunctiva, noninjected. No discharge, no pallor. ENT: Lips, teeth, gums, normal dentition. Oropharynx, no cyanosis, no pallor. NECK: Carotid arteries, bilateral normal upstroke, no bruits, no thrills. JUGULAR VEINS: No jugular venous pressure or distention. CERVICAL LYMPH NODES: Nontender, nonenlarged. THYROID: Not enlarged. Nontender. No nodules. LUNGS: Respiratory effort, unlabored. CHEST: Normal curvature. No thoracic deformity. No chest wall tenderness. Percussion, resonant. Auscultation, clear. No wheezes, no rales, no rhonchi. CARDIOVASCULAR: Precordial exam, nondisplaced. No heaves or pericardial thrills. Rate and rhythm, regular. Heart sounds, normal S1, normal S2. No S3, no gallop, no rub. Systolic murmur, not heard. Diastolic murmur, not heard. EXTREMITIES: No cyanosis, no edema. Peripheral pulses, full and equal in all extremities, except as noted. No bruits appreciated. ABDOMEN: Soft, nondistended. Normal aorta. No bruit. Nontender. No masses. Liver, nontender, no hepatomegaly. Spleen, nontender, no splenomegaly. MUSCULOSKELETAL: No joint tenderness. No joint swelling. No erythema. NEUROLOGICAL: Normal gait, normal strength, normal tone. SKIN: Warm and dry. REVIEW OF SYSTEMS: The patient reports easy bruising but reports no swollen glands. The patient reports no fever, no night sweats, no significant weight gain, no significant weight loss. No significant exercise tolerance. The patient reports no dry eyes, no irritation, no vision change. Patient reports no difficulty hearing and no ear pain. Patient reports no frequent nose bleeds or nose and sinus problems. Patient reports on arm pain on exertion. No shortness of breath while lying down. No history of heart murmur. Patient reports no cough, no wheezing or coughing up blood. Patient reports no abdominal pain, no vomiting. Normal appetite. No diarrhea and not vomiting blood. No nausea and no constipation. Patient reports no incontinence. No difficulty urinating. No hematuria. No increased frequency. Patient reports no muscle aches. No weakness, no arthralgias, no back pain. No swelling of the extremities. Patient reports no abnormal mole, no jaundice, no rashes. Reports no loss of consciousness. No weakness and no numbness. No seizures, dizziness, or headaches. The patient reports no depression, no sleep disturbance, feeling HISTORY AND PHYSICAL [id number] VANNESSA LAKHANI S safe in a relationship and no alcohol abuse. Patient reports on fatigue. Reports no runny nose or sinus pressure. No itching, no hives, and no frequent sneezing. OVERALL IMPRESSION: Significant peripheral vascular disease, claudication with disease of the SFA. We will proceed with ENTRY LEVEL SALES REPRESENTATIVE and stent of left iliac and right SFA. TRANSINT:[id number] Voice Confirmation ID: [id number] DOCUMENT ID: [id number] SHAYNA NGO MD at 1656 CC: [id number] DICTATION DATE: 05/15/17 1142 ANALYTICAL ENGINEER: 05/15/17 1204 DEP CLI 05/15/17 [facility] [address] [place] [address]
--- NOTE | 2017-05-31 16:56 | OP ---
PATIENT NAME: VANNESSA HANSEN MEDICAL RECORD: [id number] :33 LOCATION:D.CAT ADMISSION DATE: SURGEON: SHAYNA NGO MD DATE OF OPERATION: 05/15/2017 PROCEDURES: 1. Stent placement to SFA right. 2. MEDICAL DIAGNOSTIC RADIOGRAPHER of SFA right. 3. Unilateral extremity angiography. INDICATION: Claudication and peripheral vascular disease. PROCEDURE IN DETAIL: After informed consent was obtained and after a detailed explanation of the risks, benefits as well as alternative therapies, the patient elected to proceed with angiogram and angioplasty. The left femoral area was prepped and draped in normal sterile fashion. Left femoral artery was cannulated via modified Seldinger technique with placement of a 6-Kazakh clddba-mqs-nudw sheath. All catheters exchanged through this sheath. FINDINGS: The right SFA is totally occluded throughout the mid portion vessel. We were able to traverse this with a glide cath and Glidewire combination. Ballooning was undertaken with a 5.0 balloon yielding suboptimal result with severe intimal dissection. Stenting was undertaken from distal to proximal 5 x 30, 6 x 150, 6 x 100 SMART stent. Result was 0% residual stenosis. OVERALL IMPRESSION: Successful MEDICAL DIAGNOSTIC RADIOGRAPHER stent of the right SFA going from 100% initial stenosis to 0% residual stenosis. TRANSINT:[id number] Voice Confirmation ID: [id number] DOCUMENT ID: [id number] SHAYNA NGO MD at 1656 CC: [id number] DICTATION DATE: 05/15/17 1305 COIL BUILDER: 05/15/17 1341 DEP CLI 05/15/17 [id number] [place] [address]
== END | disposition home or self-care (01) ==
LOC: D.CATH 09:34
PROVIDERS: Internal Medicine Interventional Cardiology
DX: I70.211 Atherosclerosis of native arteries of extremities with intermittent claudication, right leg (principal); Z01.812 Encounter for preprocedural laboratory examination

== ENCOUNTER 2017-09-15 16:03 | Inpatient (IN) | payer MEDICARE, BC | END 2017-09-19 17:21 | disposition home or self-care (01) | DRG 190 | LOC: D.ER 16:03 → D.MS 20:58 | DX: J44.0 Chronic obstructive pulmonary disease with (acute) lower respiratory infection (principal); J18.9 Pneumonia, unspecified organism; I50.30 Unspecified diastolic (congestive) heart failure; J20.9 Acute bronchitis, unspecified; J44.1 Chronic obstructive pulmonary disease with (acute) exacerbation; I48.2 Chronic atrial fibrillation; Z79.01 Long term (current) use of anticoagulants; I11.0 Hypertensive heart disease with heart failure ==

== ENCOUNTER 2017-10-20 12:03 | Observation (INO) | payer MEDICARE, BC ==
[~2017-10-20] VITALS: Ht 162.6 cm; Wt 55.8 kg
--- NOTE | ~2017-10-20 | HEMODYNAMI ---
PATIENT:VANNESSA HANSEN MEDICAL RECORD: [id number] : 33 [facility] [id number] ADMISSION DATE: 10/20/17 Generatedon:10/22/201710:25 Patient name: VANNESSA HANSEN Patient #: [id number] SSN: D OB: 1935 Date of study: 10/22/2017 Page: Of Hemodynamic Procedure Report Patient Data Patient Demographics Procedure consent was obtained First Name: VANNESSA Gender: Female Last Name: TYRONE : 1935 Middle Initial: S Age: 82 year(s) Patient #: [id number] Race: Unknown Additional ID: [id number] Contact details [address]: [address] [place] [address] State: [place] City: [place] Zip code: [address] Past Medical History Allergies Allergen Reaction Date Comments Reported Other 05/08/2017 Nipride, Pravastatin, Codeine, allergy Actonel Other 10/21/2017 CODEINE, PRAVASTATIN, allergy QUINAPRIL,ACTONEL,AMOXIL,DARVOCET-N 100. Admission Admission Data Admission Date: 10/20/2017 Admission Time: 15:56 Arrival Date: 10/22/2017 Arrival Time: 0:00 Admit Source: Other Room #: D.2129 Height (in.): 64 BSA: 1.59 (m2) Height (cm.): 162.56 BMI: 21.11 (kg/m2) Weight (lbs.): 123 Weight (kg.): 55.79 Lab Results Lab Result Date: 10/22/2017 Lab Result Time: 0:00 Biochemistry Name Units Result Min Max BUN mg/dl 20 --(----)*- 7 18 Creatinine mg/dl 0.9 --(-*--)-- 0.6 1.3 CBC Name Units Result Min Max Hemoglobin g/dl 12.4 *-(----)-- 13.5 17.5 Procedure Procedure Types Cath Procedure Diagnostic Procedure Sedation Charges Moderate Sedation up to 15 minutes PCI Procedure Coronary Stent Coronary Stent Initial Procedure Description Procedure Date Procedure Date: 10/22/2017 Procedure Start Time: 10:03 Procedure End Time: 10:22 Procedure Staff Name Function Ángel Self MD Performing Physician Brenda Palafox RT Monitor Alona Bueno RT Scrub Julio Balbuena RN Nurse Procedure Data Cath Procedure Fluoroscopy Diagnostic fluoroscopy Total fluoroscopy Time: 7.6 time: 7.6 min min Diagnostic fluoroscopy Total fluoroscopy dose: 392 dose: 392 mGy mGy Contrast Material Contrast Material Type Amount (ml) Isovue 300 87 Entry Location Entry Primary Successful Side Size Upsize Upsize Entry Closure Succes sful Closure Location (Fr) 1 (Fr) 2 (Fr) Remarks Device Remarks Femoral Right 6 Fr Exoseal artery Short Estimated blood loss: 5 ml Procedure Complications No complications Procedure Medications Medication Administration Route Dosage Oxygen NC 2 l/min Heparin Flush Bag added to field 2 bags (1000units/500ml NS) 0.9% NaCl I.V. 100 ml/hr Radial Cocktail added to field 1 syringe (Verapomil 2mg/Nitro 400mcg/Heparin 1500units) Fentanyl I.V. 50 mcg Versed I.V. 1 mg Fentanyl I.V. 25 mcg Versed I.V. 0.5 mg Heparin Bolus I.V. 4000 units Hemodynamics Rest BSA: 1.59 (m2) HGB: 12.4 (g/dl) O2 Consumption: Estimated: 144.08 (ml/min) O2 Co nsumption indexed: Estimated:90.62 (ml/min/m) Heart Rate: 74 (bpm) Snapshots Pre Cath Intra NCS Post Cath Vital Signs Time Heart Resp SPO2 etCO2 NIBP (mmHg) Rhythm Pain Sedation Rate (ipm) (%) (mmHg) Status Level (bpm) 9:53:49 73 17 100 0 148/63(113) NSR 0 (11) 10(A) , No pain 9:58:09 70 17 99 0 144/58(106) NSR 0 (11) 10(A) , No pain 10:02:25 71 15 98 0 135/62(95) NSR 0 (11) 9(A) , No pain 10:06:41 65 16 97 0 112/50(88) NSR 0 (11) 9(A) , No pain 10:10:49 67 16 98 0 108/53(84) NSR 0 (11) 9(A) , No pain 10:14:57 64 15 98 0 107/47(80) NSR 0 (11) 9(A) , No pain 10:19:07 66 15 98 0 112/44(89) NSR 0 (11) 9(A) , No pain 10:22:58 67 17 97 0 124/49(97) NSR 0 (11) 9(A) , No pain Medications Time Medication Route Dose Verified Delivered Reason Note s Effectiveness by by 9:48:49 Oxygen NC 2 l/min Ángel Kim Per physician Clair Balbuena RN 9:48:59 Heparin Flush added 2 bags Ángel Kim used for Bag to Clair Balbuena RN procedure (1000units/500ml field NS) 9:49:09 0.9% NaCl I.V. 100 Ángel Kim Per physician ml/hr Clair Balbuena RN 9:49:17 Radial Cocktail added 1 Ángel Kim used for (Verapomil to syringe Clair Balbuena RN procedure 2mg/Nitro field 400mcg/Heparin 1500units) 10:00:10 Fentanyl I.V. 50 mcg Ángel Kim for sedation Clair Balbuena RN 10:00:15 Versed I.V. 1 mg Ángel Kim for sedation Clair Balbuena RN 10:03:48 Fentanyl I.V. 25 mcg Ángel Kim for sedation Clair Balbuena RN 10:03:53 Versed I.V. 0.5 mg Ángel Kim for sedation Clair Balbuena RN 10:07:05 Heparin Bolus I.V. 4000 Ángel Kim for units Clair Balbuena RN anticoagulation Procedure Log Time Note 9:28:51 Diagnostic Cath Status : Elective 9:29:10 Alona Bueno RT(R) sent for patient. Start room use. 9:29:10 Time tracking: Regular hours 9:29:15 Plan of Care:Hemodynamics will remain stable., Cardiac rhythm will remain stable., Comfort level will be maintained., Respiratory function will remain adequate., Patient/ family verbilizes understanding of procedure., Procedure tolerated without complication., Recovers from procedure without complications.. 9:48:49 Oxygen 2 l/min NC was administered by Julio Balbuena RN; Per physician; 9:48:59 Heparin Flush Bag (1000units/500ml NS) 2 bags added to field was administered by Julio Balbuena RN; used for procedure; 9:49:09 0.9% NaCl 100 ml/hr I.V. was administered by Julio Balbuena RN; Per physician; 9:49:17 Radial Cocktail (Verapomil 2mg/Nitro 400mcg/Heparin 1500units) 1 syringe added to field was administered by Julio Balbuena RN; used for procedure; 9:52:31 Patient received from Med II to CCL 2 Alert and oriented. Tansferred to table in Supine position. 9:52:32 Warm blankets applied, and luis armando hugger turned on for patient comfort. 9:52:32 Correct patient and procedure confirmed by team. 9:52:33 Signed procedure consent form obtained from patient. 9:52:34 ECG and BP/O2 sat monitors applied to patient. 9:52:35 Baseline sample Acquired. 9:52:35 Vital chart was started 9:52:40 Rhythm: sinus rhythm 9:52:41 Full Disclosure recording started 9:52:45 H&P Date Dictated: 10/22/2017 Within 30 days and on chart.. 9:52:46 Pre-procedure instructions explained to patient. 9:52:46 Pre-op teaching completed and patient verbalized understanding. 9:52:48 Family in patients room. 9:52:50 Patient NPO since Midnight. 9:52:52 Is the patient allergic to Iodine/contrast media? No. 9:52:53 Was the patient premedicated? No 9:52:55 Is patient on blood thinner?Yes 9:52:58 ACC The patient was administered the following blood thiners within the last 24 hours: ACCPlavix 9:52:59 Patient diabetic? No. 9:53:02 Previous problem with sedation/anesthesia? No ? 9:53:04 Snore? No 9:53:05 Sleep apnea? No 9:53:06 Deviated septum? No 9:53:07 Opens mouth fully? Yes 9:53:08 Sticks out tongue? Yes 9:53:12 Airway obstruction? Yes copd 9:53:15 Dentures? Yes in tight 9:53:18 Pre procedure: right dorsailis pedis pulse 1+ Palpable, but thready & weak; easily obliterated 9:53:20 Pre procedure: left dorsailis pedis pulse 1+ Palpable, but thready & weak; easily obliterated 9:53:26 IV patent on arrival in left forearm with 0.9% NaCl at O. 9:53:28 Lab results completed and on chart. 9:53:31 Right Radial & Right Groin area was prepped with chlora-prep and draped in sterile fashion 9:53:31 Alarms reviewed by R. N. 9:53:32 Sharps counted by scrub and verified by R.N. 9:55:10 Lab Result : Hemoglobin 12.4 g/dl 9:55:10 Lab Result : Creatinine 0.9 mg/dl 9:55:10 Lab Result : BUN 20 mg/dl 9:56:14 Admit Source: Other 9:56:17 Patient Weight : 123 lbs 9:56:33 Patient Height : 64 inches 9:56:34 Arrival Date: 10/22/2017 12:00:00 AM 9:59:28 Physician arrived 9:59:29 --------ALL STOP TIME OUT------ 9:59:29 Final Timeout: patient, procedure, and site verified with staff and physician. All members of the team are in agreement. 9:59:31 Right Radial & Right Groin site verified by team. 9:59:40 Physical assessment completed. ASA score P 2 - A patient with mild systemic disease as per Ángel Self MD. 9:59:44 Sedation plan: IV Moderate Sedation Medication:Versed, Fentanyl 9:59:48 Zero performed for pressure channel P1 10:00:10 Fentanyl 50 mcg I.V. was administered by Julio Balbuena RN; for sedation; 10:00:15 Versed 1 mg I.V. was administered by Julio Balbuena RN; for sedation; 10:00:52 Use device set Radial Dx or PCI 10:00:53 ACIST Syringe (53106) opened to sterile field. 10:00:53 Medline Cath Pack ([id number]) opened to sterile field. 10:00:53 Bag Decanter (2002S) opened to sterile field. 10:00:54 SHEATH 6FR Slender ([id number]) opened to sterile field. 10:00:54 DIAGNOSTIC WIRE .035 260cm J wire (799391) opened to sterile field. 10:00:55 ACIST Hand Control (31554) opened to sterile field. 10:00:55 ACIST Manifold (25504) opened to sterile field. 10:00:56 Tegaderm 4 x 4 (1626W) opened to sterile field. 10:00:56 MBrace Wrist Support ([id number]) opened to sterile field. 10:01:01 Procedure started. 10:03:06 GUIDE 6FR AR 2.0 catheter (XC1NV22) opened to sterile field. 10:03:12 Local anesthetic to right radial artery with Lidocaine 2% by Ángel Self MD.INITIAL ACCESS ONLY 10:03:48 Fentanyl 25 mcg I.V. was administered by Julio Balbuena RN; for sedation; 10:03:53 Versed 0.5 mg I.V. was administered by Julio Balbuena RN; for sedation; 10:05:20 unable to gain radial access; prepparing for femoral access 10:05:43 Local anesthetic to right femoral artery with Lidocaine 2% by Ángel Self MD.ADDITIONAL ACCESS 10:05:51 A 6 Fr Short sheath was inserted into the Right Femoral artery 10:06:10 6 Fr ar 2 guide catheter was inserted over the wire 10:07:05 Heparin Bolus 4000 units I.V. was administered by Julio Balbuena RN; for anticoagulation; 10:08:02 CHOICE PT Extra Support 182cm wire ([id number]) opened to sterile field. 10:08:03 INFLATOR Merit BasixCompak (EW6882) opened to sterile field. 10:08:04 SHEATH 6Fr Prelude ([id number]) opened to sterile field. 10:09:02 Guide Catheter removed. unable to cannulate vessel. 10:09:25 GUIDE 6FR ALR1-2 catheter ([id number]) opened to sterile field. 10:11:52 choice pt wire advanced. 10:16:59 Inflation number: 1 A EUPHORA 2.5 x 15 Balloon ([id number]) was prepped and advanced across the R PAV, then inflated to 11 MATILDA for 0:10 (min:sec). 10:18:06 Balloon removed over the wire. 10:18:53 Inflation Number: 2 A CATALINA RX 2.5 x 12 stent ([id number]) was prepped and advanced across the R PAV. The stent was deployed at 17 MATILDA for 0:10 (min:sec). 10:19:02 Inflation number: 3 The stent balloon was then re-inflated across the R PAV to 7 MATILDA for 0:10 (min:sec). 10:19:21 Stent catheter was removed intact over wire. 10:19:22 Wire removed. 10:19:22 Guide catheter removed. 10:19:31 EXOSEAL 6Fr (EX600) opened to sterile field. 10:19:41 Sheath removed intact; hemostasis achieved with Exoseal to the Right Femoral artery. 10:19:43 Procedure ended.(Physican Out) 10::43 Fluoroscopy time 07.60 minutes. 10:20:47 Fluoroscopy dose: 392 mGy 10:20:47 Flurop Dose total: 392 10:20:52 Contrast amount:Isovue 300 87ml. 10:21:04 Sharps counted by scrub and verified by R.N. 10:21:10 Insertion/operative site no bleeding no hematoma. 10:21:13 Post-op/insertion site Right Femoral artery dressed using a 4 x 4 and Tegaderm. 10:21:15 Post right femoral artery:stable 10:21:17 Post Procedure Pulses reassessed and unchanged 10:21:19 Post procedure rhythm: unchanged. 10:21:21 Estimated blood loss: 5 ml 10:21:23 Patient needs reinforcement of post procedure teaching. 10:21:24 Post procedure instruction explained to patient.Patient verbalizes understanding. 10:21:45 Procedure type changed to Cath procedure, Diagnostic procedure, Sedation Charges, Moderate Sedation up to 15 minutes, PCI procedure, Coronary Stent, Coronary Stent Initial 10:21:46 Procedure and supply charges have been captured, reviewed, submitted and are correct. 10:21:50 Procedure Complication : No complications 10:21:52 Vital chart was stopped 10:21:52 See physician's report for complete and final results. 10:21:59 Report given to [place] [facility]. 10:22:02 Patient transfered to [place] [facility] with Stretcher. 10:22:04 Procedure ended. 10:22:04 Full Disclosure recording stopped 10:22:10 ACC-PCI Only Patient was given prescriptions, or instructed by Ángel Self MD to start/continue the following medications upon discharge: Plavix 10:22:11 End room use (Document Last) Intervention Summary Intervention Notes Time ActionType Lesion and Equipment Used Action# Pressure Duration Attributes 10:16:59 Inflate R PAV EUPHORA 2.5 x 1 11 00:10 balloon 15 Balloon ([id number]) 10:18:53 Place stent R PAV CATALINA RX 2.5 x 2 17 00:10 12 stent ([id number]) 10:19:02 Reinflate R PAV CATALINA RX 2.5 x 3 7 00:10 stent 12 stent balloon ([id number]) Device Usage Item Name Manufacture Quantity Catalog Number Hospital Part Current M inimal Lot# / Charge Number Stock Stock Serial# Code ACIST Syringe Acist 1 24955 772331 968069 280406 2 0 (36559) Medical Systems Inc Medline Cath Cardinal 1 [id number] 838820 99839 301437 5 AVST ([id number]) Bag Decanter Microtek 1 2001S 075782 60968 235308 5 () Medical Inc. SHEATH 6FR Terumo 1 [id number] 620196 080279 884559 4 0 Slender ([id number]) DIAGNOSTIC St Alvaro 1 071288 415221 833102 218769 3 0 WIRE .035 260cm J wire (323850) ACIST Hand Acist 1 96146 582276 173742 936696 5 Control Medical (67248) Systems Inc ACIST Manifold Acist 1 80850 277148 829190 732562 5 (50105) Medical Systems Inc Tegaderm 4 x 4 3M 1 1626W 450811 781947 090891 5 (1626W) MBrace Wrist Advanced 1 140-0250-00 202252 94466 558369 5 Support Vascular ([id number]) Dynamics GUIDE 6FR AR Medtronic 1 [id number] 709046 82273 126986 1 2.0 catheter (ZD7PI77) CHOICE PT [place] 1 [id number] 349674 086872 175749 5 Extra Support Scientific 182cm wire ([id number]) INFLATOR Merit Merit 1 UD9023 244439 659209 083803 1 5 Knowmia (DM6036) SHEATH 6Fr Merit 1 [id number] 822079 808094 612744 5 Prelude Medical ([id number]) GUIDE 6FR Medtronic 1 [id number] 667335 02719 729636 1 ALR1-2 catheter ([id number]) EUPHORA 2.5 x Medtronic 1 [id number] 667595 659702 451823 5 [id number] 15 Balloon ([id number]) CATALINA RX 2.5 x Medtronic 1 [id number] 843313 8661639 098035 5 [id number] 12 stent ([id number]) EXOSEAL 6Fr Cardinal 1 EX600 594473 635590 595175 1 0 (EX600) Health Signature Audit [place] Stage Time Signature Unsigned Intra-Procedure 10/22/2017 Brenda Palafox 10:25:11 AM RT(R) Signatures Monitor : Brenda Palafox RT Signature : Date : Time : [id number] [place] [address]
--- NOTE | ~2017-10-20 | OP ---
PATIENT NAME: VANNESSA HANSEN MEDICAL RECORD: [id number] :33 LOCATION:D.M2 D.2129 ADMISSION DATE:10/20/17 SURGEON: SHAYNA NGO MD DATE OF OPERATION: 10/21/2017 PROCEDURE: 1. Laser atherectomy, left SFA. 2. Drug-eluting balloon [employer] EXECUTIVE, left SFA. 3. Aortofemoral runoff. 4. Abdominal aortography. INDICATION: Claudication and peripheral vascular disease. PROCEDURE IN DETAIL: After informed consent was obtained and after detailed explanation of risks, benefits as well as alternative therapies, the patient elected to proceed with angiogram and angioplasty. The right femoral had a preexisting sheath from cardiac intervention. All catheters exchanged through this sheath. FINDINGS: The abdominal aortography was performed. The catheter was pulled down for aortofemoral runoff. Abdominal aortography reveals no significant abdominal aortic disease. No dissection or aneurysm formation. No renal artery stenosis. RIGHT LEG: A. Iliac: The common internal and external iliacs have moderate irregularities, but no flow-limiting stenosis. B. Femoral system: The common and deep femoral are widely patent. Superficial femoral has previously placed stents with up to 90% to 95% in-stent restenosis throughout. C. Popliteal and infrapopliteal vessels appear to be patent with good 3-vessel runoff to the foot. LEFT LEG: A. Iliac: The common iliac has a previously placed stent with 70% in-stent restenosis, otherwise the iliacs have only mild irregularities. B. Femoral system: The common and deep femoral are widely patent. Superficial femoral has a previously placed stent. This is functionally close with hardly any flow through the stented area. C. Popliteal and infrapopliteal vessels are diffusely diseased, but patent giving 3-vessel runoff to the foot. LASER ATHERECTOMY, PTCA OF THE IN-STENT RESTENOSIS OF THE LEFT SFA: We were able to traverse this with a Choice PT extra support wire. Laser was undertaken at 40/25 and 60/25. Drug-eluting balloon was then used, a Stellarex 6 x 120 two inflations were made. Result was 0% residual stenosis with scientology of brisk distal flow. IMPRESSION: Successful percutaneous transluminal angioplasty stent of the left superficial femoral artery going from 99% to 100% initial stenosis, but no discernible flow distally to 0% residual stenosis with scientology of brisk distal flow. TRANSINT:[id number] Voice Confirmation ID: [id number] DOCUMENT ID: [id number] OPERATIVE REPORT [id number] VANNESSA HANSEN JEFFREY MD at 1140 CC: [id number] DICTATION DATE: 10/21/1752 GIFT BASKET PACKER: 10/21/17 1203 DIS IN 10/22/17 [facility] [address] [facility]
--- NOTE | ~2017-10-20 | OP ---
PATIENT NAME: VANNESSA HANSEN MEDICAL RECORD: [id number] :33 LOCATION:D.M2 D.2129 ADMISSION DATE:10/20/17 SURGEON: SHAYNA NGO MD DATE OF OPERATION: 10/21/2017 PROCEDURES: 1. PTCA stent LAD. 2. Intravascular ultrasound of the LAD. 3. Intravascular ultrasound of left main. 4. Left heart catheterization. 5. Selective coronary angiography. 6. Left ventriculogram. INDICATION: Unstable angina and coronary artery disease. PROCEDURE IN DETAIL: After informed consent was obtained and after detailed explanation of risks, benefits as well as alternative therapies, the patient elected to proceed with angiogram and angioplasty. The right femoral area was prepped and draped in normal sterile fashion. The right femoral artery was cannulated via modified Seldinger technique with placement of 6-[place] sheath. All catheters exchanged through this sheath. FINDINGS: The left ventriculogram was performed in standard 30-degree STANTON view, reveals good cardiac wall motion throughout all segments. Overall ejection fraction estimated at 55%. SELECTIVE CORONARY ANGIOGRAPHY: 1. Left main has a questionable stenosis at the ostium. However, intravascular ultrasound revealed this is no greater than 30%. 2. Left anterior descending has greater than 80% stenosis proximally confirmed by intravascular ultrasound. 3. Left circumflex shows moderate irregularities, but no flow-limiting stenosis. 4. The right coronary artery has 70% stenosis in the mid vessel followed by 95% stenosis in the distal vessel. PTCA STENT OF THE LEFT ANTERIOR DESCENDING: The stent used was a 3.0 x 22 mm Andrew. Result was 0% residual stenosis. OVERALL IMPRESSION: Successful percutaneous transluminal coronary angioplasty stent of the left anterior descending going from greater than 80% initial stenosis to 0% residual. PLAN: PTCA stent of the RCA in the near future. TRANSINT:[id number] Voice Confirmation ID: [id number] DOCUMENT ID: [id number] OPERATIVE REPORT [id number] SOUMYA HANSENANNA SHAYNA CASTANEDA MD at 1203 CC: [id number] DICTATION DATE: 10/21/17 0952 HOME HEALTH CAREGIVER: 10/21/17 1202 ADM IN [place] [id number] [place] [address]
--- NOTE | ~2017-10-20 | DS ---
PATIENT:VANNESSA LAKHANI :33 MEDICAL RECORD: [id number] DISCHARGE SUMMARY ADMISSION DATE: 10/20/17 DISCHARGE DATE: 10/22/17 DISCHARGE DIAGNOSES: 1. Unstable angina. 2. Claudication. 3. Peripheral vascular disease. 4. Coronary artery disease. 5. Percutaneous transluminal coronary angioplasty stent left anterior descending and right coronary artery this admission. 6. Percutaneous transluminal angioplasty stent, left leg, this admission. 7. Hypertension. 8. Hyperlipidemia. HOSPITAL COURSE: Mrs. Lakhani presents with anginal symptomatology as well as claudication symptomatology, found to have critical disease of both SFAs and critical disease of the LAD and RCA, underwent OFFLINE CUTTER Laser atherectomy of the left SFA, PTCA stent of the left anterior descending and RCA, discharged home with the addition of aspirin and Plavix to her medical regimen. She will follow up next Saturday for OFFLINE CUTTER stent of the right leg. TRANSINT:[id number] Voice Confirmation ID: [id number] DOCUMENT ID: [id number] SHAYNA NGO MD at 1140 CC: [id number] DICTATION DATE: 10/22/17 1023 TUTOR: 10/22/17 1145 DIS IN 10/22/17 [facility] [address] [place] [address]
--- NOTE | ~2017-10-20 | HEMODYNAMI ---
PATIENT:VANNESSA HANSEN MEDICAL RECORD: [id number] : 33 [facility] [id number] ADMISSION DATE: 10/20/17 Generatedon:10/21/20179:53 Patient name: VANNESSA HANSEN Patient #: [id number] SSN: D OB: 1935 Date of study: 10/21/2017 Page: Of Hemodynamic Procedure Report Patient Data Patient Demographics Procedure consent was obtained First Name: VANNESSA Gender: Female Last Name: TYRONE : 1935 [facility] Initial: S Age: 82 year(s) Patient #: [id number] Race: Unknown Additional ID: [id number] Contact details [address]: [address] [place] [address] State: [place] City: [place] Zip code: [address] Past Medical History Allergies Allergen Reaction Date Comments Reported Other 05/08/2017 Nipride, Pravastatin, Codeine, allergy Actonel Other 10/21/2017 CODEINE, PRAVASTATIN, allergy QUINAPRIL,ACTONEL,AMOXIL,DARVOCET-N 100. Admission Admission Data Admission Date: 10/20/2017 Admission Time: 15:56 Room #: [facility]9 Procedure Procedure Types Cath Procedure Diagnostic Procedure LHC LHC w/Coronaries FFR/IVUS Intra-Coronary IVUS Initial Sedation Charges Moderate Sedation up to 45 minutes PCI Procedure Coronary Stent Coronary Stent Initial Peripheral Cath Diagnostic Procedure Cath Peripheral Wbvon-Synkjbv-Yre-Off Peripheral vascular Intervention Atherectomy Atherectomy Fem/Pop w/Plasty Procedure Description Procedure Date Procedure Date: 10/21/2017 Procedure Start Time: 8:53 Procedure End Time: 9:53 Procedure Staff Name Function Ángel Self MD Performing Physician Mally Marley RT Monitor Julio Balbuena RN Nurse Madison Duffy RT Scrub Procedure Data Cath Procedure Fluoroscopy Diagnostic fluoroscopy Total fluoroscopy Time: 20 time: 20 min min Diagnostic fluoroscopy Total fluoroscopy dose: 371 dose: 371 mGy mGy Contrast Material Contrast Material Type Amount (ml) Isovue 300 201 Entry Location Entry Primary Successful Side Size Upsize Upsize Entry Closure Succes sful Closure Location (Fr) 1 (Fr) 2 (Fr) Remarks Device Remarks Femoral Right 5 Fr 7 Fr 7 Fr Exoseal artery Short Long Estimated blood loss: 10 ml Diagnostic catheters Device Type Used For End Catheter Placement MULTIPACK Pigtail 5 Fr LV Angiography catheter MULTIPACK Pigtail 5 Fr Abdominal catheter aortogram with runoff MULTIPACK JL 4.0 5Fr Left Coronary catheter Angiography MULTIPACK 3DRC 5Fr Right Coronary catheter Angiography DIAGNOSTIC AR 1 MOD 5Fr Right Coronary catheter ([id number]) Angiography DIAGNOSTIC AR 2 MOD 5 Fr Right Coronary catheter ([id number]) Angiography DIAGNOSTIC IMT 5Fr Procedure Catheter ([id number]) Procedure Complications No complications Procedure Medications Medication Administration Route Dosage Oxygen NC 2 l/min Heparin Flush Bag added to field 2 bags (1000units/500ml NS) 0.9% NaCl I.V. 100 ml/hr Fentanyl I.V. 25 mcg Versed I.V. 0.5 mg Fentanyl I.V. 25 mcg Versed I.V. 0.5 mg Heparin Bolus I.V. 5000 units Integrilin (Bolus I.V. 5 ml 2mg/ml) Heparin Bolus I.V. 4000 units Fentanyl I.V. 25 mcg Fentanyl I.V. 25 mcg Integrilin (Bolus wasted 5 ml 2mg/ml) Hemodynamics Rest Heart Rate: 80 (bpm) Snapshots Pre Cath Intra NCS Post Cath Vital Signs Time Heart Resp SPO2 etCO2 NIBP (mmHg) Rhythm Pain Sedation Rate (ipm) (%) (mmHg) Status Level (bpm) 8:30:51 81 20 100 0 182/74(134) NSR 0 (11) 10(A) , No pain 8:35:38 71 20 100 0 180/73(134) NSR 0 (11) 10(A) , No pain 8:40:58 79 18 100 0 179/67(121) NSR 0 (11) 10(A) , No pain 8:45:44 67 17 100 0 163/66(117) NSR 0 (11) 10(A) , No pain 8:50:29 75 15 99 0 156/61(116) NSR 0 (11) 10(A) , No pain 8:55:04 77 20 99 0 168/109(133) NSR 0 (11) 9(A) , No pain 8:59:48 74 16 98 0 143/55(100) NSR 0 (11) 9(A) , No pain 9:04:29 64 16 98 0 138/53(105) NSR 0 (11) 9(A) , No pain 9:09:07 72 14 98 0 144/55(106) NSR 0 (11) 9(A) , No pain 9:13:48 74 15 98 0 144/54(102) NSR 0 (11) 9(A) , No pain 9:18:28 65 17 99 0 145/58(109) NSR 0 (11) 9(A) , No pain 9:23:07 74 18 98 0 158/61(124) NSR 0 (11) 9(A) , No pain 9:27:50 75 14 98 0 157/64(114) NSR 0 (11) 9(A) , No pain 9:32:32 72 14 98 0 152/59(96) NSR 0 (11) 9(A) , No pain 9:37:05 72 14 98 0 134/63(111) NSR 0 (11) 9(A) , No pain 9:42:26 73 15 98 0 149/65(109) NSR 0 (11) 9(A) , No pain 9:47:07 72 20 98 0 154/61(100) NSR 0 (11) 9(A) , No pain 9:51:50 73 13 98 0 144/54(97) NSR 0 (11) 9(A) , No pain Medications Time Medication Route Dose Verified Delivered Reason Notes Effectiveness by by 8:29:51 Oxygen NC 2 Ángel Kim Per physician l/min Clair Balbuena RN 8:30:00 Heparin Flush added 2 Ángel Kim used for Bag to bags Clair Balbuena RN procedure (1000units/500ml field NS) 8:30:08 0.9% NaCl I.V. 100 Ángel Kim Per physician ml/hr Clair Balbuena RN 8:50:11 Fentanyl I.V. 25 Ángel Kim for sedation mcg Clair Balbuena RN 8:50:18 Versed I.V. 0.5 Ángel Kim for sedation mg Clair Balbuena RN 8:54:25 Fentanyl I.V. 25 Ángel Julio for sedation mcg Clair Balbuena RN 8:54:28 Versed I.V. 0.5 Ángel Orozcoy for sedation mg Clair Balbuena RN 9:05:55 Heparin Bolus I.V. 5000 Ángel Julio for units Clair Balbuena RN anticoagulation 9:06:06 Integrilin I.V. 5 ml Ángel Kim for (Bolus 2mg/ml) Clair Balbuena RN antiplatelet therapy 9:15:05 Fentanyl I.V. 25 Ángel Orozcoy for sedation mcg Clair Balbuena RN 9:20:05 Heparin Bolus I.V. 4000 Ángel Orozcoy for units Clair Balbuena RN anticoagulation 9:45:09 Fentanyl I.V. 25 Ángel Orozcoy for sedation mcg Clair Balbuena RN 9:47:49 Integrilin wasted 5 ml Ángel Kim for (Bolus 2mg/ml) Clair Balbuena RN antiplatelet therapy Procedure Log Time Note 8:08:47 Time tracking: Regular hours 8:08:51 Plan of Care:Hemodynamics will remain stable., Cardiac rhythm will remain stable., Comfort level will be maintained., Respiratory function will remain adequate., Patient/ family verbilizes understanding of procedure., Procedure tolerated without complication., Recovers from procedure without complications.. 8:12:40 Julio Balbuena RN sent for patient. Start room use. 8:12:55 Use device set Femoral Dx 8:12:57 ACIST Syringe (59131) opened to sterile field. 8:12:57 Bag Decanter (2002S) opened to sterile field. 8:12:59 Medline Cath Pack ([id number]) opened to sterile field. 8:13:00 SHEATH 5FR Oxford (TDF597) opened to sterile field. 8:13:01 DIAGNOSTIC WIRE .035 260cm J wire (497896) opened to sterile field. 8:13:02 ACIST Hand Control (90238) opened to sterile field. 8:13:03 ACIST Manifold (96636) opened to sterile field. 8:13:03 DIAGNOSTIC Multipack 5Fr catheter set (WI3665) opened to sterile field. 8:13:04 Tegaderm 4 x 4 (1626W) opened to sterile field. 8:13:05 PERCUTANEOUS ENTRY 19GA needle opened to sterile field. 8:24:25 Patient received from PCU to CCL 1 Alert and oriented. Tansferred to table in Supine position. 8:24:27 Warm blankets applied, and luis armando hugger turned on for patient comfort. 8:24:27 Correct patient and procedure confirmed by team. 8:24:29 Signed procedure consent form obtained from patient. 8:24:30 ECG and BP/O2 sat monitors applied to patient. 8:24:31 Full Disclosure recording started 8:29:34 Rhythm: 1st degree heart block 8:29:39 Vital chart was started 8:29:51 Oxygen 2 l/min NC was administered by Julio Balbuena RN; Per physician; 8:30:00 Heparin Flush Bag (1000units/500ml NS) 2 bags added to field was administered by Julio Balbuena RN; used for procedure; 8:30:08 0.9% NaCl 100 ml/hr I.V. was administered by Julio Balbuena RN; Per physician; 8:30:36 H&P Date Dictated: 10/17/2017 Within 30 days and on chart., ER History on chart.. 8:30:37 Pre-procedure instructions explained to patient. 8:30:37 Pre-op teaching completed and patient verbalized understanding. 8:30:42 Family unavailable. 8:30:44 Patient NPO since Midnight. 8:31:23 Patient allergic to Other allergyCODEINE, PRAVASTATIN, QUINAPRIL,ACTONEL,AMOXIL,DARVOCET-N 100. 8:31:25 Is the patient allergic to Iodine/contrast media? No. 8:31:26 Is patient on blood thinner?Yes 8:31:28 ACC The patient was administered the following blood thiners within the last 24 hours: ACCPlavix 8:31:30 Patient diabetic? No. 8:31:33 Previous problem with sedation/anesthesia? No ? 8:31:34 Snore? No 8:31:35 Sleep apnea? No 8:31:36 Deviated septum? No 8:31:37 Opens mouth fully? Yes 8:31:38 Sticks out tongue? Yes 8:31:42 Airway obstruction? Yes COPD 8:31:45 Dentures? No ? 8:33:43 Pre procedure: right dorsailis pedis pulse Doppler 8:33:47 Pre procedure: left dorsailis pedis pulse Doppler 8:33:50 Patient pain scale 0/10 ?. 8:33:53 IV patent on arrival in left hand with 0.9% NaCl at O. 8:34:34 Baseline sample Acquired. 8:34:43 Lab results completed and on chart. 8:34:50 Bilateral groins area was prepped with chlora-prep and draped in sterile fashion 8:34:51 Alarms reviewed by R. N. 8:34:51 Sharps counted by scrub and verified by R.N. 8:38:35 Physician paged 8:41:03 Zero performed for pressure channel P1 8:49:50 Final Timeout: patient, procedure, and site verified with staff and physician. All members of the team are in agreement. 8:49:52 Right groin site verified by team. 8:49:54 Physical assessment completed. ASA score P 2 - A patient with mild systemic disease as per Ángel Self MD. 8:49:58 Sedation plan: IV Moderate Sedation Medication:Versed, Fentanyl 8:50:11 Fentanyl 25 mcg I.V. was administered by Julio Balbuena RN; for sedation; 8:50:18 Versed 0.5 mg I.V. was administered by Julio Balbuena RN; for sedation; 8:53:11 Procedure started. 8:53:14 Local anesthetic to right femoral artery with Lidocaine 2% by Ángel Self MD.INITIAL ACCESS ONLY 8:54:07 A 5 Fr sheath was inserted into the Right Femoral artery 8:54:25 Fentanyl 25 mcg I.V. was administered by Julio Balbuena RN; for sedation; 8:54:28 Versed 0.5 mg I.V. was administered by Julio Balbuena RN; for sedation; 8:54:32 A MULTIPACK Pigtail 5 Fr catheter was advanced over the wire and used for LV Angiography. 8:55:05 LV gram done using STANTON 8:55:09 Injector settings: Ml/sec: 10, Volume: 20, 8:55:13 EF : 60 % 8:55:23 A MULTIPACK Pigtail 5 Fr catheter was advanced over the wire and used for Abdominal aortogram with runoff. 8:56:18 Catheter removed. 8:57:00 A MULTIPACK JL 4.0 5Fr catheter was advanced over the wire and used for Left Coronary Angiography. 8:57:38 Catheter removed. 8:57:44 A MULTIPACK 3DRC 5Fr catheter was advanced over the wire and used for Right Coronary Angiography. 8:57:49 Use device set [facility] PCI 8:57:51 INFLATOR [place] BasixCompak (NB2028) opened to sterile field. 8:57:54 CHOICE PT Extra Support J 300cm guide wire ([id number]) opened to sterile field. 8:58:12 SHEATH 7FR Oxford (ZHS594) opened to sterile field. 8:58:56 SHEATH 7FR Destination (RSR04) opened to sterile field. 9:01:02 Sheath upsized to a 7 Fr Short. 9:02:49 A DIAGNOSTIC AR 1 MOD 5Fr catheter ([id number]) was advanced over the wire and used for Right Coronary Angiography. 9:03:04 A DIAGNOSTIC AR 2 MOD 5 Fr catheter ([id number]) was advanced over the wire and used for Right Coronary Angiography. 9:03:10 Catheter removed. 9:03:57 GUIDE 6FR XBLAD 3.5 SH catheter (83232240) opened to sterile field. 9:04:13 Sheath upsized to a 7 Fr Long. 9:05:15 6 Fr XBLAD 3.5 SH guide catheter was inserted over the wire 9:05:27 CHOICE PT ES wire advanced. 9:05:55 Heparin Bolus 5000 units I.V. was administered by Julio Balbuena RN; for anticoagulation; 9:06:06 Integrilin (Bolus 2mg/ml) 5 ml I.V. was administered by Julio Balbuena RN; for antiplatelet therapy; 9:06:50 IVUS catheter advanced over wire. 9:06:52 IVUS pass to LAD lesion performed. 9:08:17 IVUS catheter removed over wire. 9:11:08 Inflation Number: 1 A CATALINA OTW 3.0 x 22 stent ([id number]) was prepped and advanced across the Prox LAD. The stent was deployed at 17 MATILDA for 0:08 (min:sec). 9:11:22 Stent catheter was removed intact over wire. 9:11:22 Wire removed. 9:11:23 Guide catheter removed. 9:12:08 GLIDE WIRE Super Stiff Angled 260cm (SC0490) opened to sterile field. 9:12:51 SS GLIDE WIRE wire advanced. 9:13:02 A DIAGNOSTIC IMT 5Fr Catheter ([id number]) was advanced over the wire and used for Procedure. 9:14:33 SS GLIDE WIRE ADVANCED DOWN LSFA 9:15:05 Fentanyl 25 mcg I.V. was administered by Julio Balbuena RN; for sedation; 9:18:31 SHEATH ADVANCED TO [facility] IMT CATH AND Wire removed. 9:19:43 CHOICE PT ES wire advanced. 9:19:50 The LASER Turbo-Power 2.0 atherectomy catheter (514554) was advanced OVER THE WIRE 9:20:05 Heparin Bolus 4000 units I.V. was administered by Julio Balbuena RN; for anticoagulation; 9:21:12 Laser pass to Left Superficial Femoral with Fluence of 45 and Rate of 25. 9:24:17 Laser pass to Left Superficial Femoral with Fluence of 60 and Rate of 25. 9:34:30 Laser pass to Left Superficial Femoral with Fluence of 60 and Rate of 25. 9:37:50 Laser catheter removed. 9:40:00 Laser total pulses delivered: 9976 9:40:16 Laser total treatment time: 6 minutes 38 seconds 9:41:13 Inflation number: 1 A STELLAREX 6 X 120 was prepped and advanced across the Distal Superficial Femoral, Left, then inflated to 11 MATILDA for 2:12 (min:sec). 9:42:19 Procedure type changed to Cath procedure, Diagnostic procedure, LHC, LHC w/Coronaries, FFR/IVUS, Intra-Coronary IVUS Initial, Sedation Charges, Moderate Sedation up to 45 minutes, PCI procedure, Coronary Stent, Coronary Stent Initial, Peripheral Cath Diagnostic Procedure, Cath Peripheral, Bvuwq-Juedpkx-Pvc-Off, Peripheral vascular Intervention, Atherectomy, Atherectomy Fem/Pop w/Plasty 9:42:25 EXOSEAL 7Fr (EX700) opened to sterile field. 9:43:30 Inflation number: 2 The STELLAREX 6 X 120 was reinflated across the Distal Superficial Femoral, Left, to 13 MATILDA for 2:01 (min:sec). 9:43:58 Balloon removed over the wire. 9:45:06 Wire removed. 9:45:09 Fentanyl 25 mcg I.V. was administered by uJlio Balbuena RN; for sedation; 9:45:46 EXCHANGED FOR SHORT 7FR SHEATH 9:46:11 Sheath removed intact; hemostasis achieved with Exoseal to the Right Femoral artery. 9:46:15 Procedure ended.(Physican Out) 9:46:39 Fluoroscopy time 20.00 minutes. 9:46:48 Flurop Dose total: 371 9:46:48 Fluoroscopy dose: 371 mGy 9:46:55 Contrast amount:Isovue 300 201ml. 9:46:56 Sharps counted by scrub and verified by R.N. 9:46:58 Insertion/operative site no bleeding no hematoma. 9:47:03 Post-op/insertion site Right Femoral artery dressed using a 4 x 4 and Tegaderm. 9:47:08 Post right femoral artery:stable, clean and dry 9:47:10 Post Procedure Pulses reassessed and unchanged 9:47:18 Post-procedure physical assessment completed. ASA score P 2 - A patient with mild systemic disease as per Ángel Self MD. 9:47:20 Post procedure rhythm: unchanged. 9:47:22 Estimated blood loss: 10 ml 9:47:24 Post procedure instruction explained to patient.Patient verbalizes understanding. 9:47:24 Patient needs reinforcement of post procedure teaching. 9:47:25 Procedure and supply charges have been captured, reviewed, submitted and are correct. 9:47:29 Procedure Complication : No complications 9:47:31 See physician's report for complete and final results. 9:47:49 Integrilin (Bolus 2mg/ml) 5 ml wasted was administered by Julio Balbuena RN; for antiplatelet therapy; 9:48:38 [place] IVUS Catheter (17149E) opened to sterile field. 9:52:57 Vital chart was stopped 9:52:58 Report given to PCU. 9:53:02 Patient transfered to PCU with Bed. 9:53:12 Procedure ended. 9:53:12 Full Disclosure recording stopped 9:53:15 End room use (Document Last) Intervention Summary Intervention Notes Time ActionType Lesion and Equipment Action# Pressure Duration Attributes Used 9:11:[address] Place stent Prox LAD CATALINA OTW 3.0 1 17 00:08 x 22 stent ([id number]) 9:19:50 Discard LASER Balloon Turbo-Power 2.0 atherectomy catheter (710595) 9:41:13 Inflate Distal STELLAREX 6 X 1 11 02:12 balloon Superficial 120 Femoral, Left 9:43:30 Reinflate Distal STELLAREX 6 X 2 13 02:01 balloon Superficial 120 Femoral, Left Device Usage Item Name Manufacture Quantity Catalog Number [facility] Lot# / Charge Number Stock Stock Serial# Code ACIST Syringe Acist 1 49086 500321 883055 765493 20 (62611) Medical Systems Inc Bag Decanter Microtek 1 2001S 116706 54386 487048 5 () Medical Inc. Medline Cath Cardinal 1 [id number] 138951 47742 723925 5 Pack Health ([id number]) SHEATH 5FR Terumo 1 FRE884 210084 915016 499928 40 Oxford (NAS586) DIAGNOSTIC [facility] Al[place]o 1 245736 785521 842103 829911 30 WIRE .035 260cm J wire (454495) ACIST Hand Acist 1 91936 043936 264950 844907 5 Control Medical (47738) Systems Inc ACIST Acist 1 91254 764599 546454 886660 5 Manifold Medical (37572) Systems Inc DIAGNOSTIC Cardinal 1 FL5863 047762 38333 447807 30 Multipack 5Fr Health catheter set (PS8552) Tegaderm 4 x 3M 1 1626W 594915 554392 172404 5 4 (1626W) PERCUTANEOUS [place] Medical 1 C52750 240505 465566 5 ENTRY 19GA needle MULTIPACK Cardinal 1 053295 5 Pigtail 5 Fr Health catheter MULTIPACK JL Cardinal 1 163577 5 4.0 5Fr Health catheter MULTIPACK Cardinal 1 480484 5 3DRC 5Fr Health catheter INFLATOR [facility] 1 SU5909 485556 817975 759583 15 [facility] Medical BasixCompak (KP4505) CHOICE PT [place] 1 [id number] 909284 917670 329106 5 Extra Support Scientific J 300cm guide wire (0837831J0) SHEATH 7FR Terumo 1 CTR881 963501 564805 536048 5 Oxford (WFX541) SHEATH 7FR Terumo 1 RSR04 548497 051764 550360 5 Destination (RSR04) DIAGNOSTIC AR Cardinal 1 684960Y 252670 590045 923216 15 1 MOD 5Fr Health catheter (638868D) DIAGNOSTIC AR Cardinal 1 519254K 361799 050192 284477 20 2 MOD 5 Fr Health catheter (986549I) GUIDE 6FR Cardinal 1 92232284 147214 742633 248989 3 XBLAD 3.5 SH Health catheter (16325296) CATALINA OTW 3.0 Medtronic 1 [id number] 961679 3431056 767527 5 [id number] x 22 stent ([id number]) GLIDE WIRE Terumo 1 HN0730 089269 076595 787369 5 Super Stiff Angled 260cm (YR8721) DIAGNOSTIC [place] 1 [id number] 425982 715433 36827 5 IMT 5Fr Scientific Catheter (218420782) LASER Tanya 1 420-576 288843 4374072 317438 5 Obatech 2.0 (949207) atherectomy catheter (217755) STELLAREX 6 X Unknown 1 0 0 120 EXOSEAL 7Fr Cardinal 1 EX700 415638 512168 624269 5 (EX700) HiPer Technology [facility] 1 82104G 518421 608651 913530 8 [place] IVUS Catheter (61278W) Signature Audit [place] Stage Time Signature Unsigned Intra-Procedure 10/21/2017 Mally 9:53:48 AM Counts RT(R) Signatures Monitor : Mally Signature : Counts RT Date : Time : [place] [address] [place] [address]
[~2017-10-20 12:03] MED LIST changes: +IPRAT-ALBUT 0.5-3 ML UPD; +LEVAQUIN500 MG PO; +Levaquin PO; +MUCINEX DM ER1 EAC1 PO; +PREDNISONE50 MG PO
[2017-10-20 14:04] LABS: BASOPHILS 0.3 % (0-2); EOSINOPHILS 0.8 % (0-7); HEMATOCRIT 37.7 % (36.0-48.0); HEMOGLOBIN 12.4 g/dL (12-16); IMMATURE GRANULOCYTES 0.3 % (0-5); LYMPHOCYTES 10.1 % (15-50); MCHC 32.9 g/dL (31.0-37.0); MCV 88.3 fL (80.0-100.0); MEAN PLATELET VOLUME 10.4 fL (7.4-10.4); NEUTROPHILS 78.5 % (40-80); RBC 4.27 10x6/uL (4.00-5.40); RDW 14.3 % (11.5-14.5); WBC 11.9 10x3/uL (4.8-10.8)
[2017-10-20 14:15] LABS: PLATELET COUNT 434 10x3/uL (130-400)
[2017-10-20 14:37] LABS: ALBUMIN 3.3 g/dL (3.4-5.0); ANION GAP 9.1 mmol/L (8-16); BILIRUBIN - TOTAL 0.58 mg/dL (0.2-1.3); CALCIUM 10.6 mg/dL (8.5-10.1); CARBON DIOXIDE 36.2 mmol/L (21.0-32.0); CREATININE - SERUM 0.9 mg/dL (0.6-1.3); POTASSIUM - SERUM 3.3 mmol/L (3.5-5.1); PROTEIN - SERUM 7.6 g/dL (6.4-8.2)
[2017-10-20 21:53] VITALS: BP 129/47
[2017-10-20 23:34] VITALS: BP 129/47; BMI 21.2
[2017-10-21 02:40] VITALS: BP 111/41
[2017-10-21 06:44] VITALS: BP 127/50
[2017-10-21 10:17] VITALS: BP 130/42
[2017-10-21 12:33] VITALS: BP 169/60
[2017-10-21 13:40] VITALS: Ht 162.6 cm; Wt 55.8 kg
[2017-10-21 18:36] VITALS: BP 154/72
[2017-10-21 20:00] VITALS: BP 98/62
[2017-10-22 08:25] VITALS: BP 141/81
[2017-10-22 12:28] VITALS: BP 122/92
[2017-10-22] MEDS ORDERED: PLAVIX75 MG PO (12:57)
[2017-10-22] MEDS ORDERED: ASPIRIN81 MG PO (12:58)
== END 2017-10-22 16:46 | disposition home or self-care (01) ==
LOC: D.ER 12:03 → OBSVTIME 15:56 → D.M2 15:56
PROVIDERS: Family Medicine
DX: I25.110 Atherosclerotic heart disease of native coronary artery with unstable angina pectoris (principal); I10 Essential (primary) hypertension; E78.5 Hyperlipidemia, unspecified; I73.9 Peripheral vascular disease, unspecified
CPT/HCPCS: 93458; 92978; 92979; 37225; C9600 ×2

== ENCOUNTER 2017-10-28 08:48 | Outpatient (CLI) | payer MEDICARE, BC ==
[~2017-10-28] VITALS: Ht 162.6 cm; Wt 55.5 kg
--- NOTE | ~2017-10-28 | OP ---
PATIENT NAME: VANNESSA HANSEN MEDICAL RECORD: [id number] :33 LOCATION:D.CAT ADMISSION DATE: SURGEON: SHAYNA NGO MD DATE OF OPERATION: 10/28/2017 PROCEDURES: 1. Laser atherectomy SFA, right. 2. AROMATHERAPIST stent, SFA, right. 3. Unilateral extremity angiography. INDICATION: Claudication and peripheral vascular disease. PROCEDURE IN DETAIL: After informed consent was obtained and after detailed explanation of risks, benefits as well as alternative therapies, the patient elected to proceed with angiogram and angioplasty. The left femoral area was prepped and draped in normal sterile fashion. Left femoral artery was cannulated via modified Seldinger technique with a 6-Australian bnfudw-gve-mcyl sheath. All catheters exchanged through this sheath. FINDINGS: The left SFA was totally occluded. This is a chronic total occlusion. We were able to traverse this with a glide catheter Glidewire Choice PT extra support combination. Laser atherectomy was performed with a 2.0 turbo laser. Multiple passes were made at 40 and 60 and 40. Ballooning was then undertaken with a drug-eluting balloon Stellarex 6 x 120. This caused an intimal dissection requiring stenting with a 7 x 106 x 40 SMART stent. Result was 0% residual throughout. OVERALL IMPRESSION: Successful laser atherectomy, AROMATHERAPIST with drug-eluting balloon, stent placement of the right superficial femoral artery going from 100% initial stenosis to 0% residual stenosis. TRANSINT:[id number] Voice Confirmation ID: [id number] DOCUMENT ID: [id number] SHAYNA NGO MD at 0832 CC: [id number] DICTATION DATE: 10/28/17 1154 FIRE PROTECTION SPECIALIST: 10/28/17 1210 DEP CLI 10/28/17 [place] [address]
--- NOTE | ~2017-10-28 | HEMODYNAMI ---
PATIENT:VANNESSA HANSEN MEDICAL RECORD: [id number] : 33 LOCATION:[facility] ADMISSION DATE: 10/28/17 Generatedon:10/28/201712:05 Patient name: VANNESSA HANSEN Patient #: [id number] SSN: D OB: 1935 Date of study: 10/28/2017 Page: Of Hemodynamic Procedure Report Patient Data Patient Demographics Procedure consent was obtained First Name: VANNESSA Gender: Female Last Name: TYRONE : 1935 Middle Initial: S Age: 82 year(s) Patient #: [id number] Race: Unknown Additional ID: [id number] Contact details [address]: [address] [place] [address] State: [place] City: [place] Zip code: [address] Past Medical History Allergies Allergen Reaction Date Comments Reported Other 05/08/2017 Nipride, Pravastatin, Codeine, allergy Actonel Other 10/21/2017 CODEINE, PRAVASTATIN, allergy QUINAPRIL,ACTONEL,AMOXIL,DARVOCET-N 100. Other 10/28/2017 actonel, codeine, nipride, allergy pravastatin Admission Admission Data Admission Date: 10/28/2017 Admission Time: 8:48 Lab Results Lab Result Date: 10/22/2017 Lab Result Time: 0:00 Biochemistry Name Units Result Min Max BUN mg/dl 20 --(----)*- 7 18 Creatinine mg/dl 0.9 --(-*--)-- 0.6 1.3 CBC Name Units Result Min Max Hemoglobin g/dl 12.4 *-(----)-- 13.5 17.5 Procedure Procedure Types Cath Procedure Peripheral Cath Diagnostic Procedure Peripheral vascular Intervention Atherectomy Atherectomy Fem/Pop w/Stent/Plasty Procedure Description Procedure Date Procedure Date: 10/28/2017 Procedure Start Time: 10:47 Procedure End Time: 11:55 Procedure Staff Name Function Brenda Palafox RT Monitor Ángel Self MD Performing Physician Alona Bueno RT Scrub Dimitrios Tee RN Nurse Procedure Data Cath Procedure Fluoroscopy Diagnostic fluoroscopy Total fluoroscopy Time: 0 time: 0 min min Diagnostic fluoroscopy Total fluoroscopy dose: 310 dose: 310 mGy mGy Contrast Material Contrast Material Type Amount (ml) Isovue 300 226 Entry Location Entry Primary Successful Side Size Upsize Upsize Entry Closure Succes sful Closure Location (Fr) 1 (Fr) 2 (Fr) Remarks Device Remarks Femoral Right 6 Fr 7 Fr 7 Fr Exoseal artery Short Long Short Femoral Right 4 Fr Sheath vein sutured in place Estimated blood loss: 5 ml Diagnostic catheters Device Type Used For End Catheter Placement DIAGNOSTIC IMT 5Fr Multi-vessel Catheter ([id number]) Angiography Procedure Complications No complications Procedure Medications Medication Administration Route Dosage 0.9% NaCl I.V. 100 ml/hr Oxygen NC 2 l/min Heparin Flush Bag added to field 2 bags (1000units/500ml NS) Lidocaine 2% added to field 20 Benadryl I.V. 50 mg Versed I.V. 1 mg Fentanyl I.V. 25 mcg Heparin Bolus I.V. 4000 units Fentanyl I.V. 50 mcg Fentanyl I.V. 25 mcg Versed I.V. 1 mg Heparin Bolus I.V. 3000 units Hemodynamics Rest HGB: 12.4 (g/dl) Heart Rate: 75 (bpm) Snapshots Pre Cath Intra NCS Post Cath Vital Signs Time Heart Resp SPO2 etCO2 NIBP (mmHg) Rhythm Pain Sedation Rate (ipm) (%) (mmHg) Status Level (bpm) 10:32:13 74 15 97 0 161/62(122) NSR 0 (11) 10(A) , No pain 10:36:39 72 17 100 29.1 159/57(115) NSR 0 (11) 10(A) , No pain 10:41:08 69 11 100 31.3 145/52(105) NSR 0 (11) 10(A) , No pain 10:45:34 68 14 100 35.1 141/49(105) NSR 0 (11) 10(A) , No pain 10:50:01 70 20 100 26.1 145/50(105) NSR 0 (11) 10(A) , No pain 10:54:22 67 14 100 15.6 133/47(94) NSR 0 (11) 9(A) , No pain 10:58:43 68 13 100 18.6 138/52(107) NSR 0 (11) 9(A) , No pain 11:03:05 70 14 100 20.1 128/49(93) NSR 0 (11) 9(A) , No pain 11:07:25 69 17 100 20.9 129/46(84) NSR 0 (11) 10(A) , No pain 11:11:43 62 17 100 26.8 133/52(101) NSR 0 (11) 9(A) , No pain 11:16:03 69 10 100 11.2 136/48(92) NSR 0 (11) 9(A) , No pain 11:20:23 69 12 100 12.6 132/50(92) NSR 0 (11) 9(A) , No pain 11:24:41 70 14 100 17.1 143/55(97) NSR 0 (11) 9(A) , No pain 11:29:03 69 18 100 21.6 144/53(97) NSR 0 (11) 9(A) , No pain 11:33:26 71 19 100 31.3 159/58(109) NSR 0 (11) 9(A) , No pain 11:37:52 70 13 100 8.9 154/64(116) NSR 0 (11) 9(A) , No pain 11:42:12 68 13 100 12.6 129/56(91) NSR 0 (11) 10(A) , No pain 11:46:30 62 14 100 16.4 137/51(108) NSR 0 (11) 10(A) , No pain 11:50:50 71 15 100 21.6 137/52(97) NSR 0 (11) 10(A) , No pain 11:55:10 72 11 100 23.8 144/54(102) NSR 0 (11) 10(A) , No pain Medications Time Medication Route Dose Verified Delivered Reason Notes Effectiveness by by 10:29:34 0.9% NaCl I.V. 100 Dimitrios Dimitrios Per physician ml/hr Randal Tee RN RN 10:29:44 Oxygen NC 2 Dimitrios Dimitrios Per physician l/min Randal Tee RN RN 10:29:56 Heparin Flush added 2 Dimitrios Dimitrios used for Bag to bags Lorigan Lorigan procedure (1000units/500ml field RN RN NS) 10:30:09 Lidocaine 2% added 20ml Dimitrios Dimitrios for local to vial Lormitchell Tee anesthetic field RN RN 10:49:39 Benadryl I.V. 50 mg Dimitrios Dimitrios for sedation Randal Tee RN RN 10:49:50 Versed I.V. 1 mg Dimitiros Dimitrios for sedation Randal Tee RN RN 10:50:00 Fentanyl I.V. 25 Dimitrios Dimitrios for sedation mcg Randal Tee RN RN 10:58:58 Heparin Bolus I.V. 4000 Dimitrios Dimitrios for units Lormitchell Tee anticoagulation RN RN 11:11:20 Fentanyl I.V. 50 Dimitrios Dimitrios for sedation mcg Randal Tee RN RN 11:31:25 Fentanyl I.V. 25 Dimitrios Dimitrios for sedation mcg Randal Tee RN RN 11:33:54 Versed I.V. 1 mg Dimitrios Dimitrios for sedation Randal Tee RN RN 11:38:54 Heparin Bolus I.V. 3000 Dimitrios Dimitrios for units Lormitchell Tee anticoagulation RN track inspector Log Time Note 10:02:22 Brenda Palafox RT(R) sent for patient. Start room use. 10:02:23 Time tracking: Regular hours 10::28 Plan of Care:Hemodynamics will remain stable., Cardiac rhythm will remain stable., Comfort level will be maintained., Respiratory function will remain adequate., Patient/ family verbilizes understanding of procedure., Procedure tolerated without complication., Recovers from procedure without complications.. 10:22:25 Patient received from Pre/Post Procedure Room to CCL 2 Alert and oriented. Tansferred to table in Supine position. 10:22:26 Warm blankets applied, and luis armando hugger turned on for patient comfort. 10:22:27 Correct patient and procedure confirmed by team. 10::28 Signed procedure consent form obtained from patient. 10:22:29 ECG and BP/O2 sat monitors applied to patient. 10:22:30 Full Disclosure recording started 10:29:34 0.9% NaCl 100 ml/hr I.V. was administered by Dimitrios Tee RN; Per physician; 10:29:44 Oxygen 2 l/min NC was administered by Dimitrios Tee RN; Per physician; 10:29:56 Heparin Flush Bag (1000units/500ml NS) 2 bags added to field was administered by Dimitrios Tee RN; used for procedure; 10:30:09 Lidocaine 2% 20ml vial added to field was administered by Dimitrios Tee RN; for local anesthetic; 10:30:58 Vital chart was started 10:30:59 Baseline sample Acquired. 10:31:05 Rhythm: sinus rhythm 10:31:12 H&P Date Dictated: 10/28/2017 Within 30 days and on chart., H&P Addendum completed by physician on day of procedure. (MUST COMPLETE FOR ALL OUTPATIENTS). 10:31:13 Pre-procedure instructions explained to patient. 10:31:14 Pre-op teaching completed and patient verbalized understanding. 10:31:15 Family in waiting room. 10:31:16 Patient NPO since Midnight. 10:31:43 Patient allergic to Other allergyactonel, codeine, nipride, pravastatin 10:31:45 Is the patient allergic to Iodine/contrast media? No. 10:31:46 Was the patient premedicated? No 10:31:47 Is patient on blood thinner?Yes 10:31:50 ACC The patient was administered the following blood thiners within the last 24 hours: ACCPlavix 10:31:52 Patient diabetic? No. 10:32:02 Previous problem with sedation/anesthesia? No ? 10:32:04 Snore? No 10:32:09 Sleep apnea? No 10:32:10 Opens mouth fully? Yes 10:32:10 Deviated septum? No 10:32:11 Sticks out tongue? Yes 10:32:15 Airway obstruction? Yes copd 10:32:17 Dentures? No ? 10:38:49 Pre procedure: right dorsailis pedis pulse Doppler 10:38:53 Pre procedure: left dorsailis pedis pulse Doppler 10:38:56 Patient pain scale 0/10 ?. 10:39:15 Lab results completed and on chart. 10:39:23 Bilateral groins area was prepped with chlora-prep and draped in sterile fashion 10:39:25 Alarms reviewed by R. N. 10:39:25 Sharps counted by scrub and verified by R.N. 10:39:36 Use device set Radial Dx or PCI 10:39:38 ACIST Syringe (20414) opened to sterile field. 10:39:39 Bag Decanter (2002S) opened to sterile field. 10:39:39 Medline Cath Pack ([id number]) opened to sterile field. 10:39:41 DIAGNOSTIC WIRE .035 260cm J wire (859853) opened to sterile field. 10:39:42 ACIST Hand Control (98396) opened to sterile field. 10:39:43 Tegaderm 4 x 4 (1626W) opened to sterile field. 10:39:43 ACIST Manifold (50757) opened to sterile field. 10:40:30 SHEATH 6Fr Prelude ([id number]) opened to sterile field. 10:40:[address] [place] (866441) opened to sterile field. 10:41:05 Physician arrived 10:41:06 Final Timeout: patient, procedure, and site verified with staff and physician. All members of the team are in agreement. 10:41:06 --------ALL STOP TIME OUT------ 10:41:08 Bilateral groins site verified by team. 10:41:10 Physical assessment completed. ASA score P 2 - A patient with mild systemic disease as per Ángel Self MD. 10:41:14 Sedation plan: IV Moderate Sedation Medication:Versed, Fentanyl 10:45:52 Procedure started. 10:46:28 Zero performed for pressure channel P1 10:47:05 Local anesthetic to left femerol artery with Lidocaine 2% by Ángel Self MD.INITIAL ACCESS ONLY 10:47:19 A 6 Fr Short sheath was inserted into the Right Femoral artery 10:47:32 A 4 Fr sheath was inserted into the Right Femoral vein 10:49:39 Benadryl 50 mg I.V. was administered by Dimitrios Tee RN; for sedation; 10:49:50 Versed 1 mg I.V. was administered by Dimitrios Tee RN; for sedation; 10:50:00 Fentanyl 25 mcg I.V. was administered by Dimitrios Tee RN; for sedation; 10:52:32 GLIDE WIRE ANGLE 260cm (RS3432) opened to sterile field. 10:53:03 SHEATH 7FR Destination (RSR04) opened to sterile field. 10:53:22 A DIAGNOSTIC IMT 5Fr Catheter ([id number]) was advanced over the wire and used for Multi-vessel Angiography. 10:54:18 imt used to guide glide wire up and around the horn 10:55:20 Catheter removed. 10:56:27 Sheath upsized to a 7 Fr Long. 10:56:49 Right leg runoff performed. 10:57:35 GLIDE CATHETER 5FR STRAIGHT 100cm (CG506) opened to sterile field. 10:57:41 TORQUE DEVICE PLASTIC .038 ( TD01) opened to sterile field. 10:58:44 GLIDE WIRE Super Stiff Angled 260cm (VX2636) opened to sterile field. 10:58:58 Heparin Bolus 4000 units I.V. was administered by Dimitrios Tee RN; for anticoagulation; 10:59:03 CHOICE PT Extra Support J 300cm guide wire ([id number]) opened to sterile field. 11:01:35 glide wire advanced. 11:01:39 Wire removed. 11:01:41 Guide catheter removed. 11:02:00 GLIDE CATHETER 5FR ANGLED 65cm (CG507) opened to sterile field. 11:02:43 angled glide exchanged for straight glide catheter 11:04:38 wire advanced more; straight glide cath exchanged for angled glide catheter 11:07:26 glide wire exchanged for choice pt extra support wire 11:10:48 Inflation number: 1 A SABER 6.0 X 200 X 150 balloon ([id number]) was prepped and advanced across the Mid Superficial Femoral, Right, then inflated to 9 MATILDA for 0:10 (min:sec). 11:11:04 Inflation number: 2 The SABER 6.0 X 200 X 150 balloon ([id number]) was reinflated across the Mid Superficial Femoral, Right, to 9 MATILDA for 0:10 (min:sec). 11:11:20 Fentanyl 50 mcg I.V. was administered by Dimitrios Tee RN; for sedation; 11:12:05 Balloon removed over the wire. 11:12:38 Pass Number: 1 A LASER Turbo-Power 2.0 atherectomy catheter ([id number]) was advanced to the Mid Superficial Femoral, Right. Laser Begun. Frequency: 40 Power: 40 11:14:11 multiple passed made to RSFA with lazer 11:19:14 CHOICE PT Extra Support J 300cm guide wire ([id number]) opened to sterile field. 11:19:34 choice pt extra support wire exchanged for new one 11:23:02 Saline bag exchanged for new one; more lazer passes made 11:31:25 Fentanyl 25 mcg I.V. was administered by Dimitrios Tee RN; for sedation; 11:31:37 Laser catheter removed. 11:32:38 Inflation number: 3 A STELLAREX 6 x 120 x 135 DE Balloon ([id number]) was prepped and advanced across the Mid Superficial Femoral, Right, then inflated to 13 MATILDA for 0:10 (min:sec). 11:32:57 Timer 1 started at 11:30 AM, stopped at 11:32 AM, duration 00:02:34 sec. 11:33:54 Versed 1 mg I.V. was administered by Dimitrios Tee RN; for sedation; 11:34:56 SHEATH 7FR [place] (LEV187) opened to sterile field. 11:35:01 Inflation number: 4 The STELLAREX 6 x 120 x 135 DE Balloon ([id number]) was reinflated across the Mid Superficial Femoral, Right, to 13 MATILDA for 0:10 (min:sec). 11:35:10 Timer 2 started at 11:33 AM, stopped at 11:35 AM, duration 00:02:03 sec. 11:36:14 Inflation number: 5 The STELLAREX 6 x 120 x 135 DE Balloon ([id number]) was reinflated across the Mid Superficial Femoral, Right, to 13 MATILDA for 0:10 (min:sec). 11:36:17 Timer 1 started at 11:35 AM, stopped at 11:36 AM, duration 00:01:00 sec. 11:37:02 Balloon removed over the wire. 11:38:54 Heparin Bolus 3000 units I.V. was administered by Dimitrios Tee RN; for anticoagulation; 11:40:05 SMART 7 X 100 X 120 stent ([id number]) was deployed across Mid Superficial Femoral, Right . 11:41:47 Inflation number: 6 The SABER 6.0 X 200 X 150 balloon ([id number]) was reinflated across the Mid Superficial Femoral, Right, to 5 MATILDA for 0:10 (min:sec). 11:42:16 Inflation number: 7 The SABER 6.0 X 200 X 150 balloon ([id number]) was reinflated across the Mid Superficial Femoral, Right, to 1 MATILDA for 0:10 (min:sec). 11:44:00 SMART 6 X 40 X 120 stent ([id number]) was deployed across Mid Superficial Femoral, Right . 11:45:44 Inflation number: 8 The SABER 6.0 X 200 X 150 balloon ([id number]) was reinflated across the Mid Superficial Femoral, Right, to 5 MATILDA for 0:10 (min:sec). 11:45:49 Inflation number: 9 The SABER 6.0 X 200 X 150 balloon ([id number]) was reinflated across the Mid Superficial Femoral, Right, to 11 MATILDA for 0:10 (min:sec). 11:48:50 Inflation number: 10 The SABER 6.0 X 200 X 150 balloon ([id number]) was reinflated across the Mid Superficial Femoral, Right, to 5 MATILDA for 0:30 (min:sec). 11:50:19 Balloon removed over the wire. 11:50:24 Wire removed. 11:50:48 Sheath upsized to a 7 Fr Short. 11:50:57 EXOSEAL 7Fr (EX700) opened to sterile field. 11:52:42 Laser total treatment time: 8 minutes 8 seconds 11:53:08 Laser total pulses delivered: 11:53:26 Sheath removed intact; hemostasis achieved with Exoseal to the Right Femoral artery. 11:53:28 Procedure ended.(Physican Out) 11:54:01 Fluoroscopy time 00.00 minutes. 11:54:05 Fluoroscopy dose: 310 mGy 11:54:05 Flurop Dose total: 310 11:54:35 Contrast amount:Isovue 300 226ml. 11:54:36 Sharps counted by scrub and verified by R.N. 11:54:38 Insertion/operative site no bleeding no hematoma. 11:54:41 Post-op/insertion site Left Femoral artery dressed using a 4 x 4 and Tegaderm. 11:54:44 Post left femerol artery:stable 11:54:46 Post Procedure Pulses reassessed and unchanged 11:54:48 Post procedure rhythm: unchanged. 11:54:51 Estimated blood loss: 5 ml 11:54:52 Post procedure instruction explained to patient.Patient verbalizes understanding. 11:54:53 Patient needs reinforcement of post procedure teaching. 11:55:22 Procedure type changed to Cath procedure, Peripheral Cath Diagnostic Procedure, Peripheral vascular Intervention, Atherectomy, Atherectomy Fem/Pop w/Stent/Plasty 11:55:25 Procedure and supply charges have been captured, reviewed, submitted and are correct. 11:55:29 Procedure Complication : No complications 11:55:31 See physician's report for complete and final results. 11:55:31 Vital chart was stopped 11:55:33 Report given to Pre/Post Procedure Room. 11:55:36 Patient transfered to Pre/Post Procedure Room with Stretcher. 11:55:38 Full Disclosure recording stopped 11:55:38 Procedure ended. 11:57:21 ACC-PCI Only Patient was given prescriptions, or instructed by Ángel Self MD to start/continue the following medications upon discharge: Plavix 11:57:22 End room use (Document Last) 12:05:04 Sheath removed intact; hemostasis achieved with Sheath sutured in place to the Right Femoral vein. Intervention Summary Intervention Notes Time ActionType Lesion and Equipment Used Action# Pressure Duration Attributes 11:10:48 Inflate Mid SABER 6.0 X 200 X 1 9 00:10 balloon Superficial 150 balloon Femoral, ([id number]) Right 11:11:04 Reinflate Mid SABER 6.0 X 200 X 2 9 00:10 balloon Superficial 150 balloon Femoral, ([id number]) Right 11:12:38 Laser pass Mid LASER Turbo-Power Superficial 2.0 atherectomy Femoral, catheter (904046) Right 11:32:38 Inflate Mid STELLAREX 6 x 120 3 13 00:10 balloon Superficial x 135 DE Balloon Femoral, ([id number]) Right 11:35:01 Reinflate Mid STELLAREX 6 x 120 4 13 00:10 balloon Superficial x 135 DE Balloon Femoral, ([id number]) Right 11:36:14 Reinflate Mid STELLAREX 6 x 120 5 13 00:10 balloon Superficial x 135 DE Balloon Femoral, ([id number]) Right 11:40:05 Deploy self Mid SMART 7 X 100 X 1 expanding Superficial 120 stent stent Femoral, ([id number]) Right 11:41:47 Reinflate Mid SABER 6.0 X 200 X 6 5 00:10 balloon Superficial 150 balloon Femoral, ([id number]) Right 11:42:16 Reinflate Mid SABER 6.0 X 200 X 7 1 00:10 balloon Superficial 150 balloon Femoral, ([id number]) Right 11:44:00 Deploy self Mid SMART 6 X 40 X 1 expanding Superficial 120 stent stent Femoral, ([id number]) Right 11:45:44 Reinflate Mid SABER 6.0 X 200 X 8 5 00:10 balloon Superficial 150 balloon Femoral, ([id number]) Right 11:45:49 Reinflate Mid SABER 6.0 X 200 X 9 11 00:10 balloon Superficial 150 balloon Femoral, ([id number]) Right 11:48:50 Reinflate Mid SABER 6.0 X 200 X 10 5 00:30 balloon Superficial 150 balloon Femoral, ([id number]) Right Device Usage Item Name Manufacture Quantity Catalog Number Hospital Part Curr ent Minimal Lot# / Charge Number Stock Stock Serial# Code ACIST Syringe Acist 1 07265 252053 206834 4100 05 20 (07221) [employer] Medline Cath Pack Cardinal 1 [id number] 075205 36072 9919 55 5 ([id number]) Health Bag Decanter Microtek 1 2001S 731607 01929 9906 88 5 (2001S) Medical Inc. DIAGNOSTIC WIRE [facility] 1 186359 099962 357816 6835 54 30 .035 260cm J wire (513367) ACIST Hand Acist 1 64323 344780 558239 7966 28 5 Control (55186) [employer] Inc ACIST Manifold Acist 1 05581 113787 967830 2894 45 5 (55450) [employer] Inc Tegaderm 4 x 4 3M 1 1626W 868878 812317 9418 02 5 (1626W) SHEATH 6Fr Merit 1 [id number] 169168 918650 5769 93 5 Prelude Medical ([id number]) SHEATH 4FR [facility] 1 900658 089895 246516 9896 97 5 Alvaro (945616) GLIDE WIRE ANGLE Terumo 1 DU6116 249377 159674 9839 50 5 260cm (VL7853) SHEATH 7FR Terumo 1 RSR04 651626 661965 1184 42 5 Destination (RSR04) DIAGNOSTIC IMT [place] 1 [id number] 031138 421454 4172 4 5 5Fr Catheter Scientific ([id number]) GLIDE CATHETER Terumo 1 CG506 444025 13541 9999 66 4 5FR STRAIGHT 100cm (CG506) TORQUE DEVICE [place] 1 TD01 182177 939807 9658 36 5 PLASTIC .038 ( Scientific TD01) GLIDE WIRE Super Terumo 1 KY2665 619238 314084 6564 50 5 Stiff Angled 260cm (VK0951) CHOICE PT Extra [place] 2 [id number] 239629 849730 1054 20 5 Support J 300cm Scientific guide wire ([id number]) GLIDE CATHETER Terumo 1 CG507 682943 9970 47 5 5FR ANGLED 65cm (CG507) LASER Turbo-Power Tanya 1 420-050 201697 0512733 2791 93 5 [id number] 2.0 atherectomy Healthcare catheter (028535) (270454) SABER 6.0 X 200 X Cardinal 1 [id number] 818152 0466 93 5 150 balloon Health ([id number]) STELLAREX 6 x 120 Tanya 1 [id number] 723102 4183107 2264 98 5 x 135 DE Balloon Healthcare ([id number]) (354533) SHEATH 7FR Terumo 1 NFP751 038409 958353 7682 63 5 [place] (PNN321) SMART 7 X 100 X Cardinal 1 [id number] 478654 1573 88 0 [id number] 120 stent Health ([id number]) SMART 6 X 40 X Cardinal 1 [id number] 680265 7190 69 0 [id number] 120 stent Health ([id number]) EXOSEAL 7Fr Cardinal 1 EX700 234234 443905 1449 22 5 (EX700) Health Signature Audit [place] Stage Time Signature Unsigned Intra-Procedure 10/28/2017 Brenda Palafox RT(R) 12:02:18 PM RT(R) 10/28/2017 12:04:11 PM Intra-Procedure 10/28/2017 Brenda Palafox 12:05:30 PM RT(R) Signatures Monitor : Brenda Palafox RT Signature : Date : Time : [address] [place] [address]
--- NOTE | ~2017-10-28 | HP ---
PATIENT: VANNESSA LAKHANI MEDICAL RECORD: [id number] ACCOUNT: [id number] LOCATION:[facility] : 33 ADMISSION DATE: 10/28/17 HISTORY AND PHYSICAL EXAMINATION DIAGNOSES: 1. Claudication. 2. Peripheral vascular disease. 3. Coronary artery disease. 4. Hypertension. 5. Hyperlipidemia. HISTORY OF PRESENT ILLNESS: Mrs. Lakhani has right leg claudication. She underwent recent AFRO revealing subtotal occlusion of the right leg. She is now brought for laser atherectomy and [employer] DRIVER stent of the right leg. PHYSICAL EXAMINATION: GENERAL APPEARANCE: Well-nourished, well-developed, appears stated age. Level of distress, comfortable. PSYCHIATRIC: Mental status, alert, normal affect. Orientation, oriented to time, place and person. EYES: Lids and conjunctiva, noninjected. No discharge, no pallor. ENT: Lips, teeth, gums, normal dentition. Oropharynx, no cyanosis, no pallor. NECK: Carotid arteries, bilateral normal upstroke, no bruits, no thrills. JUGULAR VEINS: No jugular venous pressure or distention. CERVICAL LYMPH NODES: Nontender, nonenlarged. THYROID: Not enlarged. Nontender. No nodules. LUNGS: Respiratory effort, unlabored. CHEST: Normal curvature. No thoracic deformity. No chest wall tenderness. Percussion, resonant. Auscultation, clear. No wheezes, no rales, no rhonchi. CARDIOVASCULAR: Precordial exam, nondisplaced. No heaves or pericardial thrills. Rate and rhythm, regular. Heart sounds, normal S1, normal S2. No S3, no gallop, no rub. Systolic murmur, not heard. Diastolic murmur, not heard. EXTREMITIES: No cyanosis, no edema. Peripheral pulses, full and equal in all extremities, except as noted. No bruits appreciated. ABDOMEN: Soft, nondistended. Normal aorta. No bruit. Nontender. No masses. Liver, nontender, no hepatomegaly. Spleen, nontender, no splenomegaly. MUSCULOSKELETAL: No joint tenderness. No joint swelling. No erythema. NEUROLOGICAL: Normal gait, normal strength, normal tone. SKIN: Warm and dry. OVERALL IMPRESSION: Hemodynamically critical disease of the right leg, limb threatening ischemia, claudication, we will proceed with transcatheter revascularization of the right leg. TRANSINT:[id number] Voice Confirmation ID: [id number] DOCUMENT ID: [id number] HISTORY AND PHYSICAL [id number] VANNESSA LAKHANI JEFFREY MD at 1140 CC: [id number] DICTATION DATE: 10/28/17 1001 [facility]: 10/28/17 1015 [address] [place] [id number] [place] [id number]
[~2017-10-28 08:48] MED LIST changes: +ASPIRIN81 MG PO
[2017-10-28 09:43] VITALS: BP 179/51; Ht 162.6 cm; Wt 55.5 kg
== END 2017-10-28 16:00 | disposition home or self-care (01) ==
LOC: D.CATH 08:48
DX: I70.211 Atherosclerosis of native arteries of extremities with intermittent claudication, right leg (principal); I70.92 Chronic total occlusion of artery of the extremities; I25.10 Atherosclerotic heart disease of native coronary artery without angina pectoris; I10 Essential (primary) hypertension; E78.5 Hyperlipidemia, unspecified; Z01.812 Encounter for preprocedural laboratory examination

== ENCOUNTER 2017-11-04 09:15 | Inpatient (IN) | payer MEDICARE, BC ==
[~2017-11-04] VITALS: Ht 162.6 cm; Wt 55.8 kg
--- NOTE | ~2017-11-04 | CN ---
PATIENT NAME:VANNESSA HANSEN MEDICAL RECORD: [id number] : 33 LOCATION:[id number] ADMIT DATE: 11/04/17 ACCOUNT: [id number] CONSULTING PHYSICIAN: RUFINO WATSON MD REFERRING PHYSICIAN: NICHOLE STEVENSON MD DATE OF CONSULTATION: 11/04/2017 CONSULT REQUESTING PHYSICIAN: Dr. Rosio Stevenson. REASON FOR CONSULTATION: Acute exacerbation of chronic obstructive pulmonary disease, pneumonia, left lower lobe. HISTORY OF PRESENT ILLNESS: Ms. Hansen is an 82-year-old female, patient of mine. She was hospitalized in September with shortness of breath and COPD exacerbation. She was also having congestive heart failure. According to the patient, now for the last few days, she has worsening shortness of breath. She is coughing without much sputum production. Denies fever and chills. No night sweats. She has pain in the lower extremity and recently she is seen by Dr. Self and she has both cardiac as well as stent in the lower extremities. REVIEW OF SYSTEMS: As in history of present illness. PAST MEDICAL HISTORY: 1. COPD. 2. Chronic hypoxic respiratory failure. 3. Atrial fibrillation. 4. Congestive heart failure. 5. Coronary artery disease, status post angioplasty. 6. Peripheral vascular disease. 7. Anxiety. PAST SURGICAL HISTORY: 1. Hysterectomy. 2. Left trigger thumb removed. 3. Left lower extremity stent placement, right lower extremity stent placement. 4. Carotid stent placement. ALLERGIES: SHE IS ALLERGIC TO AMOXICILLIN, ACETAMINOPHEN, CODEINE, PRAVASTATIN, QUINAPRIL. MEDICATIONS: On [employer] is reviewed. PERSONAL AND SOCIAL HISTORY: The patient is an ex-smoker. She is a nondrinker. FAMILY HISTORY: Significant for coronary artery disease. PHYSICAL EXAMINATION: GENERAL: Now, the patient is lying comfortably. She is not in acute distress. VITAL SIGNS: The blood pressure is 118/52, pulse is 71, respiration is 16, temperature 98.4, SpO2 of 97% on 3 liters nasal cannula. HEENT: Conjunctivae are pink. Sclerae are not icteric. NECK: Neck is supple, no JVD. CHEST: The chest excursion is minimal on both sides. There is a left basal crackle, wheeze on forceful expiration. HEART: Rhythm regular, normal sound, no murmur. CONSULT REPORT [id number] VANNESSA HANSEN ABDOMEN: Abdomen is soft, bowel sounds present. No hepatosplenomegaly. RECTAL: Deferred. EXTREMITIES: No cyanosis. There is a gangrene of the toes. CENTRAL NERVOUS SYSTEM: The patient is awake and alert. There are no obvious cranial nerve abnormality. LABORATORY DATA: CBC: WBC 14.3, hemoglobin 11.8, hematocrit 36, platelet count 436. Chemistry: Sodium 139, potassium 4.4, BUN is 13, creatinine 0.8. IMPRESSION: 1. Acute exacerbation of chronic obstructive pulmonary disease. 2. Pneumonia, left lower lobe, most likely hospital-acquired pneumonia with the patient's recent hospitalization. 3. Peripheral vascular disease. 4. Gangrene of the toes. 5. Old granulomatous disease. The patient has these pulmonary nodules, they are stable for years. 6. Community-acquired pneumonia. 7. Atrial fibrillation. RECOMMENDATION: 1. Start methylprednisolone IV. Discontinue clindamycin. Start her on Levaquin and cefepime. 2. Methylprednisolone IV. 3. Xopenex, ipratropium nebulizer. 4. Brovana, budesonide nebulizer. 5. Follow up labs and chest radiograph. Dr. Stevenson, thank you for involving me in the care of Ms. Hansen. TRANSINT:[id number] Voice Confirmation ID: [id number] DOCUMENT ID: [id number] RUFINO WATSON MD at 1410 CC: SHAYY TORO MD [id number] DICTATION DATE: 11/04/171907 JACK PRIZER: 11/05/17 0340 ADM IN [facility] [address] [id number]
[2017-11-04 10:11] LABS: BASOPHILS 0.4 % (0-2); HEMOGLOBIN 11.8 g/dL (12-16); IMMATURE GRANULOCYTES 0.1 % (0-5); LYMPHOCYTES 8.9 % (15-50); MCH 29.4 pg (26.0-34.0); MCHC 32.8 g/dL (31.0-37.0); MCV 89.8 fL (80.0-100.0); MEAN PLATELET VOLUME 9.7 fL (7.4-10.4); MONOCYTES 7.1 % (2-11); NEUTROPHILS 81.5 % (40-80); PLATELET COUNT 439 10x3/uL (130-400); RBC 4.01 10x6/uL (4.00-5.40); RDW 14.5 % (11.5-14.5); WBC 14.3 10x3/uL (4.8-10.8)
[2017-11-04 10:35] LABS: ALBUMIN 2.7 g/dL (3.4-5.0); ALKALINE PHOSPHATASE 68 U/L (46-116); ALT (SGPT) 16 U/L (10-68); BILIRUBIN - TOTAL 0.47 mg/dL (0.2-1.3); CALC OSMOLALITY 277 mosm/kg (275-300); CALCIUM 9.8 mg/dL (8.5-10.1); CARBON DIOXIDE 29.4 mmol/L (21.0-32.0); CHLORIDE - SERUM 104 mmol/L (98-107); CREATININE - SERUM 0.8 mg/dL (0.6-1.3); GLUCOSE 107 mg/dL (74-106); POTASSIUM - SERUM 4.4 mmol/L (3.5-5.1); PROTEIN - SERUM 7.4 g/dL (6.4-8.2); SODIUM 139 mmol/L (136-145); UREA NITROGEN 13 mg/dL (7-18); eGFR NON AFRICAN AMERICAN 72 mL/min (90-120)
[2017-11-04 10:43] LABS: CREATINE KINASE 33 UL (21-215); PRO BNP 1399 pg/mL (0-450)
[2017-11-04 10:51] LABS: TROPONIN-I < 0.017 ng/mL (0.000-0.060)
[2017-11-04 15:35] VITALS: BP 118/52; BMI 21.1
[2017-11-04 16:32] VITALS: BP 118/52
[2017-11-04 20:00] VITALS: BP 127/65
[2017-11-05] VITALS: BP 141/82
[2017-11-05 04:00] VITALS: BP 118/42
[2017-11-05 05:28] LABS: BASOPHILS 0.3 % (0-2); EOSINOPHILS 1.4 % (0-7); IMMATURE GRANULOCYTES 0.2 % (0-5); LYMPHOCYTES 8.3 % (15-50); MCH 28.8 pg (26.0-34.0); MCHC 32.4 g/dL (31.0-37.0); MCV 88.9 fL (80.0-100.0); MEAN PLATELET VOLUME 9.6 fL (7.4-10.4); MONOCYTES 9.5 % (2-11); NEUTROPHILS 80.3 % (40-80); PLATELET COUNT 361 10x3/uL (130-400); RDW 14.4 % (11.5-14.5)
[2017-11-05 05:33] LABS: RBC 3.16 10x6/uL (4.00-5.40); WBC 10.5 10x3/uL (4.8-10.8)
[2017-11-05 05:34] LABS: HEMATOCRIT 28.1 % (36.0-48.0); HEMOGLOBIN 9.1 g/dL (12-16)
[2017-11-05 05:49] LABS: ALKALINE PHOSPHATASE 56 U/L (46-116); ALT (SGPT) 13 U/L (10-68); CALC OSMOLALITY 277 mosm/kg (275-300); CALCIUM 9.2 mg/dL (8.5-10.1); CARBON DIOXIDE 27.3 mmol/L (21.0-32.0); CHLORIDE - SERUM 106 mmol/L (98-107); CREATININE - SERUM 0.7 mg/dL (0.6-1.3); GLUCOSE 108 mg/dL (74-106); PROTEIN - SERUM 5.8 g/dL (6.4-8.2); SODIUM 140 mmol/L (136-145); UREA NITROGEN 8 mg/dL (7-18); eGFR NON AFRICAN AMERICAN 85 mL/min (90-120)
[2017-11-05 08:11] VITALS: BP 124/41
[2017-11-05 10:53] LABS: % SATURATION 27 % (15-55); IRON 71 ug/dl (35-150); TOTAL IRON BIND CAPACITY 262 ug/dl (260-445); UNSAT IRON BIND CAPACITY 191 ug/dl (150-375)
[2017-11-05 12:31] VITALS: BP 135/47
[2017-11-05 14:54] VITALS: BMI 21.1
[2017-11-05 16:09] VITALS: BP 128/50
[2017-11-05 20:00] VITALS: BP 135/49
[2017-11-05 22:57] VITALS: Ht 162.6 cm; Wt 55.8 kg
[2017-11-06 04:00] VITALS: BP 143/83
[2017-11-06 05:36] LABS: BASOPHILS 0 % (0-2); EOSINOPHILS 0 % (0-7); HEMATOCRIT 33.8 % (36.0-48.0); HEMOGLOBIN 11.3 g/dL (12-16); IMMATURE GRANULOCYTES 0.4 % (0-5); LYMPHOCYTES 4.6 % (15-50); MCH 29.5 pg (26.0-34.0); MCHC 33.4 g/dL (31.0-37.0); MCV 88.3 fL (80.0-100.0); MEAN PLATELET VOLUME 9.8 fL (7.4-10.4); MONOCYTES 1.4 % (2-11); NEUTROPHILS 93.6 % (40-80); PLATELET COUNT 412 10x3/uL (130-400); RBC 3.83 10x6/uL (4.00-5.40); RDW 14.1 % (11.5-14.5)
[2017-11-06 06:05] LABS: ALBUMIN 2.3 g/dL (3.4-5.0); ALKALINE PHOSPHATASE 63 U/L (46-116); ALT (SGPT) 13 U/L (10-68); BILIRUBIN - TOTAL 0.32 mg/dL (0.2-1.3); CALC OSMOLALITY 278 mosm/kg (275-300); CALCIUM 9.4 mg/dL (8.5-10.1); CARBON DIOXIDE 26.4 mmol/L (21.0-32.0); CHLORIDE - SERUM 104 mmol/L (98-107); CREATININE - SERUM 0.7 mg/dL (0.6-1.3); GLUCOSE 139 mg/dL (74-106); POTASSIUM - SERUM 4.4 mmol/L (3.5-5.1); PROTEIN - SERUM 5.9 g/dL (6.4-8.2); SODIUM 138 mmol/L (136-145); eGFR NON AFRICAN AMERICAN 85 mL/min (90-120)
[2017-11-06 06:08] LABS: UREA NITROGEN 16 mg/dL (7-18)
[2017-11-06 08:07] VITALS: BP 127/45
[2017-11-06 08:20] LABS: FOLATE (FOLIC ACID) - SERUM >20.0 ng/mL (>3.0)
[2017-11-06 11:39] VITALS: BP 136/46
[2017-11-06 15:44] VITALS: BP 149/53
[2017-11-06 19:48] VITALS: BP 125/40
[2017-11-07 04:17] VITALS: BP 147/55
[2017-11-07 06:38] LABS: BASOPHILS 0 % (0-2); EOSINOPHILS 0.1 % (0-7); HEMATOCRIT 30.4 % (36.0-48.0); HEMOGLOBIN 9.9 g/dL (12-16); IMMATURE GRANULOCYTES 0.2 % (0-5); LYMPHOCYTES 7.4 % (15-50); MCH 28.9 pg (26.0-34.0); MCHC 32.6 g/dL (31.0-37.0); MCV 88.9 fL (80.0-100.0); MEAN PLATELET VOLUME 9.9 fL (7.4-10.4); MONOCYTES 7.1 % (2-11); NEUTROPHILS 85.2 % (40-80); PLATELET COUNT 418 10x3/uL (130-400); RBC 3.42 10x6/uL (4.00-5.40); RDW 14.6 % (11.5-14.5); WBC 14.8 10x3/uL (4.8-10.8)
[2017-11-07 07:05] LABS: ALBUMIN 2.1 g/dL (3.4-5.0); ALKALINE PHOSPHATASE 50 U/L (46-116); ALT (SGPT) 16 U/L (10-68); CALC OSMOLALITY 286 mosm/kg (275-300); CALCIUM 9.7 mg/dL (8.5-10.1); CARBON DIOXIDE 28.7 mmol/L (21.0-32.0); CHLORIDE - SERUM 109 mmol/L (98-107); CREATININE - SERUM 0.7 mg/dL (0.6-1.3); GLUCOSE 106 mg/dL (74-106); SODIUM 143 mmol/L (136-145); UREA NITROGEN 19 mg/dL (7-18); eGFR NON AFRICAN AMERICAN 85 mL/min (90-120)
[2017-11-07 08:37] VITALS: BP 152/43
[2017-11-07 11:44] VITALS: BP 144/60
[2017-11-07 14:13] LABS: APTT 25.8 SECONDS (22.8-39.4); INR 1.14 (0.85-1.17); PROTIME 14.2 SECONDS (11.6-15.0)
[2017-11-07 17:26] VITALS: BP 131/43
[2017-11-07 21:48] VITALS: BP 126/63
[2017-11-08 02:26] VITALS: BP 176/74
[2017-11-08 04:25] LABS: BASOPHILS 0 % (0-2); EOSINOPHILS 0 % (0-7); IMMATURE GRANULOCYTES 0.2 % (0-5); LYMPHOCYTES 4.7 % (15-50); MCH 28.5 pg (26.0-34.0); MCHC 32.3 g/dL (31.0-37.0); MCV 88.3 fL (80.0-100.0); MEAN PLATELET VOLUME 9.6 fL (7.4-10.4); MONOCYTES 1.5 % (2-11); NEUTROPHILS 93.6 % (40-80); PLATELET COUNT 418 10x3/uL (130-400); RBC 3.51 10x6/uL (4.00-5.40); RDW 14.7 % (11.5-14.5)
[2017-11-08 04:28] VITALS: BP 131/54
[2017-11-08 05:19] LABS: ALBUMIN 2.3 g/dL (3.4-5.0); BILIRUBIN - TOTAL 0.26 mg/dL (0.2-1.3); CALCIUM 8.9 mg/dL (8.5-10.1); CARBON DIOXIDE 27.4 mmol/L (21.0-32.0); POTASSIUM - SERUM 4.4 mmol/L (3.5-5.1)
[2017-11-08 05:20] LABS: CREATININE - SERUM 0.9 mg/dL (0.6-1.3)
[2017-11-08 09:48] VITALS: BP 102/44
[2017-11-08 13:22] VITALS: BP 130/53
[2017-11-08 18:10] VITALS: BP 122/48
[2017-11-08 20:40] VITALS: BP 106/61
[2017-11-09 00:01] VITALS: BP 131/59
[2017-11-09 05:24] VITALS: BP 149/67
[2017-11-09 06:58] LABS: BASOPHILS 0 % (0-2); EOSINOPHILS 0 % (0-7); HEMATOCRIT 32.2 % (36.0-48.0); HEMOGLOBIN 10.7 g/dL (12-16); IMMATURE GRANULOCYTES 0.3 % (0-5); LYMPHOCYTES 4.6 % (15-50); MCH 29.2 pg (26.0-34.0); MCHC 33.2 g/dL (31.0-37.0); MEAN PLATELET VOLUME 9.6 fL (7.4-10.4); MONOCYTES 3.1 % (2-11); PLATELET COUNT 420 10x3/uL (130-400); RBC 3.66 10x6/uL (4.00-5.40); RDW 14.5 % (11.5-14.5); WBC 11.8 10x3/uL (4.8-10.8)
[2017-11-09 07:31] LABS: ALBUMIN 2.5 g/dL (3.4-5.0); ANION GAP 13.1 mmol/L (8-16); BILIRUBIN - TOTAL 0.33 mg/dL (0.2-1.3); CALCIUM 9.2 mg/dL (8.5-10.1); CREATININE - SERUM 0.8 mg/dL (0.6-1.3); POTASSIUM - SERUM 4.1 mmol/L (3.5-5.1); PROTEIN - SERUM 5.9 g/dL (6.4-8.2)
[2017-11-09 08:39] VITALS: BP 136/58
[2017-11-09 12:32] VITALS: BP 142/54
[2017-11-09 15:47] VITALS: BP 146/61
[2017-11-09 22:19] VITALS: BP 134/48
[2017-11-10 01:31] VITALS: BP 144/60
[2017-11-10 06:18] LABS: BASOPHILS 0 % (0-2); EOSINOPHILS 1.7 % (0-7); HEMATOCRIT 31.4 % (36.0-48.0); HEMOGLOBIN 10.4 g/dL (12-16); IMMATURE GRANULOCYTES 0.3 % (0-5); LYMPHOCYTES 13.6 % (15-50); MCH 29.1 pg (26.0-34.0); MCHC 33.1 g/dL (31.0-37.0); MCV 87.7 fL (80.0-100.0); MEAN PLATELET VOLUME 9.9 fL (7.4-10.4); MONOCYTES 9.6 % (2-11); NEUTROPHILS 74.8 % (40-80); PLATELET COUNT 385 10x3/uL (130-400); RBC 3.58 10x6/uL (4.00-5.40); RDW 14.5 % (11.5-14.5)
[2017-11-10 06:35] LABS: ALBUMIN 2.3 g/dL (3.4-5.0); BILIRUBIN - TOTAL 0.31 mg/dL (0.2-1.3); CALCIUM 9.2 mg/dL (8.5-10.1); CARBON DIOXIDE 30.6 mmol/L (21.0-32.0); CREATININE - SERUM 0.8 mg/dL (0.6-1.3); PROTEIN - SERUM 5.8 g/dL (6.4-8.2)
[2017-11-10 06:37] LABS: ANION GAP 9.7 mmol/L (8-16); POTASSIUM - SERUM 3.3 mmol/L (3.5-5.1)
[2017-11-10 08:23] VITALS: BP 142/67
[2017-11-10 11:47] VITALS: BP 160/61
[2017-11-10 15:47] VITALS: BP 137/55
[2017-11-10 22:31] VITALS: BP 156/63
[2017-11-11 04:13] VITALS: BP 164/71
[2017-11-11 05:16] LABS: BASOPHILS 0 % (0-2); EOSINOPHILS 0 % (0-7); HEMATOCRIT 33.2 % (36.0-48.0); HEMOGLOBIN 10.9 g/dL (12-16); IMMATURE GRANULOCYTES 0.1 % (0-5); LYMPHOCYTES 3.6 % (15-50); MCH 28.8 pg (26.0-34.0); MCHC 32.8 g/dL (31.0-37.0); MCV 87.8 fL (80.0-100.0); MEAN PLATELET VOLUME 10.1 fL (7.4-10.4); NEUTROPHILS 93.3 % (40-80); PLATELET COUNT 403 10x3/uL (130-400); RBC 3.78 10x6/uL (4.00-5.40); RDW 14.6 % (11.5-14.5); WBC 13.7 10x3/uL (4.8-10.8)
[2017-11-11 05:39] LABS: ALBUMIN 2.6 g/dL (3.4-5.0); BILIRUBIN - TOTAL 0.4 mg/dL (0.2-1.3); CALCIUM 9.7 mg/dL (8.5-10.1); CARBON DIOXIDE 29.6 mmol/L (21.0-32.0); CREATININE - SERUM 0.9 mg/dL (0.6-1.3); MAGNESIUM - SERUM 2.2 mg/dL (1.8-2.4); PROTEIN - SERUM 6.2 g/dL (6.4-8.2)
[2017-11-11 05:40] LABS: ANION GAP 11.6 mmol/L (8-16); POTASSIUM - SERUM 4.2 mmol/L (3.5-5.1)
[2017-11-11 08:17] VITALS: BP 144/52
[2017-11-11 12:35] VITALS: BP 132/57
[2017-11-11 15:57] VITALS: BP 150/67
[2017-11-11 20:47] VITALS: BP 188/73
[2017-11-11 23:56] VITALS: BP 152/53
[2017-11-12 04:35] VITALS: BP 148/71
[2017-11-12 06:59] LABS: BASOPHILS 0 % (0-2); EOSINOPHILS 1.5 % (0-7); HEMATOCRIT 35.8 % (36.0-48.0); HEMOGLOBIN 11.6 g/dL (12-16); IMMATURE GRANULOCYTES 0.4 % (0-5); LYMPHOCYTES 15.6 % (15-50); MCH 28.7 pg (26.0-34.0); MCHC 32.4 g/dL (31.0-37.0); MCV 88.6 fL (80.0-100.0); MEAN PLATELET VOLUME 10.1 fL (7.4-10.4); MONOCYTES 9.6 % (2-11); NEUTROPHILS 72.9 % (40-80); PLATELET COUNT 389 10x3/uL (130-400); RBC 4.04 10x6/uL (4.00-5.40); RDW 14.7 % (11.5-14.5); WBC 14.5 10x3/uL (4.8-10.8)
[2017-11-12 07:13] LABS: ALBUMIN 2.6 g/dL (3.4-5.0); ANION GAP 10.9 mmol/L (8-16); BILIRUBIN - TOTAL 0.6 mg/dL (0.2-1.3); CALCIUM 9.6 mg/dL (8.5-10.1); CARBON DIOXIDE 29.9 mmol/L (21.0-32.0); CREATININE - SERUM 0.8 mg/dL (0.6-1.3); POTASSIUM - SERUM 3.8 mmol/L (3.5-5.1); PROTEIN - SERUM 5.9 g/dL (6.4-8.2)
[2017-11-12 08:59] VITALS: BP 157/48
[2017-11-12 12:32] VITALS: BP 130/80
[2017-11-12 16:31] VITALS: BP 123/57
[2017-11-12 20:23] VITALS: BP 117/84
[2017-11-12 23:43] VITALS: BP 158/55
[2017-11-13 04:25] VITALS: BP 134/60
[2017-11-13 05:46] LABS: BASOPHILS 0 % (0-2); EOSINOPHILS 1.5 % (0-7); HEMATOCRIT 33.1 % (36.0-48.0); HEMOGLOBIN 10.8 g/dL (12-16); IMMATURE GRANULOCYTES 0.5 % (0-5); LYMPHOCYTES 13.2 % (15-50); MCH 28.7 pg (26.0-34.0); MCHC 32.6 g/dL (31.0-37.0); MONOCYTES 9.8 % (2-11); PLATELET COUNT 370 10x3/uL (130-400); RBC 3.76 10x6/uL (4.00-5.40); RDW 14.6 % (11.5-14.5)
[2017-11-13 06:14] LABS: ALBUMIN 2.5 g/dL (3.4-5.0); BILIRUBIN - TOTAL 0.6 mg/dL (0.2-1.3); CALCIUM 9.5 mg/dL (8.5-10.1); CARBON DIOXIDE 29.7 mmol/L (21.0-32.0); CREATININE - SERUM 0.9 mg/dL (0.6-1.3); POTASSIUM - SERUM 3.7 mmol/L (3.5-5.1); PROTEIN - SERUM 5.7 g/dL (6.4-8.2)
[2017-11-13 08:39] VITALS: BP 148/44
[2017-11-13] MEDS ORDERED: ATROVENT 0.02%2.5 ML UPD (11:13)
[2017-11-13] MEDS ORDERED: DOXYCYCLINE HY100 M2 PO (11:16)
[2017-11-13] MEDS ORDERED: LEVAQUIN750 MG PO (11:17)
[2017-11-13] MEDS ORDERED: TESSALON PERLE100 MG PO (11:21)
[2017-11-13] MEDS ORDERED: PEPCID20 MG PO (11:21)
[2017-11-13] MEDS ORDERED: PREDNISONE20 MG PO (11:21)
[2017-11-13] MEDS ORDERED: MUCINEX600 MG PO (11:22)
[2017-11-13] MEDS ORDERED: PULMICORT0.5 MG/21 UPD (11:23)
[2017-11-13 12:45] VITALS: BP 114/72
== END 2017-11-13 17:05 | DRG 190 ==
LOC: D.ER 09:15 → D.MS 11:26 → D.EDHOLD 11:26 → D.MS 12:40
PROVIDERS: Emergency Medicine; Family Medicine
PROC: 05HC33Z Insertion of Infusion Device into Left Basilic Vein, Percutaneous Approach (ICD-10-PCS; principal; 2017-11-04)
PROC: B54NZZA Ultrasonography of Left Upper Extremity Veins, Guidance (ICD-10-PCS; 2017-11-04)
DX: J44.0 Chronic obstructive pulmonary disease with (acute) lower respiratory infection (principal); J18.9 Pneumonia, unspecified organism; J96.11 Chronic respiratory failure with hypoxia; I96 Gangrene, not elsewhere classified; I70.263 Atherosclerosis of native arteries of extremities with gangrene, bilateral legs; K92.2 Gastrointestinal hemorrhage, unspecified; J44.1 Chronic obstructive pulmonary disease with (acute) exacerbation; I48.0 Paroxysmal atrial fibrillation; I25.10 Atherosclerotic heart disease of native coronary artery without angina pectoris; Z95.5 Presence of coronary angioplasty implant and graft; L97.529 Non-pressure chronic ulcer of other part of left foot with unspecified severity; L97.519 Non-pressure chronic ulcer of other part of right foot with unspecified severity; R91.8 Other nonspecific abnormal finding of lung field; D64.9 Anemia, unspecified; E87.6 Hypokalemia

== ENCOUNTER 2017-11-13 17:12 | Inpatient (IN) | payer MEDICARE, BC ==
[~2017-11-13] VITALS: Ht 162.6 cm; Wt 58.1 kg
--- NOTE | ~2017-11-13 | RHP ---
PATIENT: VANNESSA HANSEN MEDICAL RECORD: [id number] ACCOUNT: [id number] LOCATION:[facility]1111 : 33 ADMISSION DATE: 11/13/17 REHABILITATION HISTORY AND PHYSICAL EXAMINATION POST ADMISSION PHYSICIAN EXAMINATION POST-ADMISSION PHYSICAL EXAMINATION AND HISTORY AND PHYSICAL DATE OF ADMISSION: 11/13/2017 ADMITTING DIAGNOSIS: Congestive heart failure induced myopathy. HISTORY OF PRESENT ILLNESS: The patient is an 82-year-old female patient, who is admitted to the rehab with a working diagnosis of CHF myopathy. The patient presented with progressive worsening of shortness of breath and bilateral lower extremity pain due to wounds on her feet. She also had a chronic nonproductive cough. She had cardiac and extremity stenting approximately 3 weeks prior to her hospital admit and states that since then she has been developing increasing edema, sores, and worsening shortness of breath. She had a recent cardiac cath with stenting on 10/20, 10/22, and 10/[address] Self. Her past medical history includes COPD, chronic O2, AFib, peripheral arterial disease, coronary artery disease, history of tobacco use. She was admitted a few weeks ago and underwent intervention to her LAD as well as laser atherectomy to the right superficial femoral artery. Family states she had been at home, but not been doing well over the past couple of weeks since her hospital admit. She has been having increasing shortness of breath. She cannot ambulate well without getting tired and having significant dyspnea. Family states that she has had intermittent fevers. She had been followed by pulmonary, cardiology, podiatry, gastroenterology during that stay. Multifold Operator had made an orthopedic shoe for her right foot due to necrotic areas and pain in her heel and toes. She is slowly, but progressively continues to have increasing shortness of breath requiring O2 at 2 liters via nasal cannula. She lives at home alone and has used a single-point cane as needed with ambulating, but not very much. She was independent with her ADLs. She is currently having increased shortness of breath, dyspnea, unsteady gait and requiring rest breaks when ambulating and has proximal muscle weakness when getting up from bed to chair. She is min A to mod A for her mobility and set at mod A for ADLs due to increasing shortness of breath and requiring assistance. She and her family hopefully plan for her to return home at her prior level of functioning or better. Comorbidities include paroxysmal atrial fib, chronic diastolic heart failure, acute exacerbation of COPD, hypokalemia, anemia, debility, bundle-branch block, chronic obstructive pulmonary disease, chronic arterial vascular disease, acute foot pain, acute community-acquired pneumonia, leukocytosis, hyperglycemia, coagulation problems, chronic O2 use, history of tobacco use, acute atherosclerotic peripheral vascular disease with ulceration, and chronic diastolic heart failure. PAST MEDICAL HISTORY: Significant for COPD, chronic hypoxic respiratory failure, atrial fib, congestive heart failure, coronary artery disease, peripheral vascular disease, anxiety, neuropathy, tingling, weakness, trouble swallowing, macular degeneration, carotid stenosis, and home O2 dependence. PAST SURGICAL HISTORY: Includes hysterectomy. She has had a left trigger thumb, left lower extremity stent placement, right lower extremity stent placement, angioplasty with stent placement, carotid stent placement, and lumbar discectomy. HISTORY AND PHYSICAL [id number] VANNESSA HANSEN ALLERGIES: DARVOCET, CODEINE, ACTONEL, AND QUINAPRIL. CURRENT MEDICATIONS: Include tramadol 50 mg every 6 hours p.r.n., Atrovent updrafts as needed, Floranex 460 mg daily, prednisone 40 mg and she is on a tapering dose, Zaroxolyn 2.5 mg daily, Levaquin 750 mg daily, digoxin 0.125 mg daily, Plavix 75 mg daily, Bumex 1 mg daily, sotalol 40 mg b.i.d., Zocor 10 mg at bedtime, potassium 10 mEq b.i.d., Singulair 10 mg at bedtime. She has got Mucinex 1200 mg b.i.d., Pepcid 20 mg b.i.d., Vibramycin 100 mg b.i.d., Pulmicort 0.5 mg b.i.d., Tessalon Perles 100 mg t.i.d. p.r.n., Elavil 10 mg at bedtime, and MiraLax 17 g in 8 ounces of water daily. HABITS: No alcohol or tobacco use at this time. Does have a history of tobacco use in the past. FAMILY HISTORY: Noncontributory. SOCIAL HISTORY: The patient hopes to return back home and get back to her prior level of functioning. REVIEW OF SYSTEMS: GENERAL: Does complain of weakness and fatigue. HEENT: Denies cold, cough, or congestion. CARDIOVASCULAR: Denies any chest pain. LUNGS: Does complain of shortness of breath. PHYSICAL EXAMINATION: VITAL SIGNS: Stable, afebrile. GENERAL: An elderly female, in no acute distress upon exam. HEENT: Normocephalic and atraumatic. Mucosa moist. NECK: Supple. No lymphadenopathy. LUNGS: Clear in upper [place]. HEART: Irregular rate and rhythm. ABDOMEN: Benign. EXTREMITIES: She does have noted peripheral edema. She also has some necrotic areas and wounds. NEUROLOGIC: She does have decreased sensation. LABORATORY DATA: Her admit white count is 12.9, H&H of 10 and 32, and platelet count is noted to be 386. Her sodium is 140, potassium 4.6, BUN and creatinine of 21 and 0.8, and blood sugar is noted to be 80. ASSESSMENT: This is an 82-year-old female patient admitted to rehab with a working diagnosis of congestive heart failure induced myopathy, but also complications with peripheral vascular disease, edema, and wounds. The patient has potential to make improvement. We will institute the following multidisciplinary therapies including, but not limited to physical, occupational, respiratory, speech, nutritional services, prosthetics and orthotics. Given her complex medical condition and risk for more complications, rehabilitation services cannot be provided at a low level of care such as a [place] [facility] facility. PLAN: 1. Admit to [facility] for intensive inpatient therapy to include the following disciplines: HISTORY AND PHYSICAL [id number] VANNESSA HANSEN A. Physical therapy to improve gait, all transfer skills and bed mobility to a modified independent level. B. Occupational therapy to improve activities of daily living to a modified independent level. C. Case management to assist with discharge planning and placement options. D. Nutrition to assist with nutritional needs. E. Rehabilitation nursing to assist in monitoring the patient's underlying medical conditions and to assist with any type of bowel or bladder management. 2. The patient's current medications will be continued. 3. The patient will be placed on standard fall precautions. 4. The patient's estimated length of stay is approximately 7-10 days. 5. We will have wound care see her during her stay. We will watch her I's and O's. Hopefully continue to diurese her and get her back to her prior level of functioning in home setting. TRANSINT:[id number] Voice Confirmation ID: [id number] DOCUMENT ID: [id number] LIEN notes whether there has been none or any medical/functional change since admission: - No change since the PAS LIEN attests patient continues to be appropriate for IRF: - Still appropriate for the IRF ALBARO GEIGER MD at 0834 CC: [id number] DICTATION DATE: 11/14/17 0847 EXTERMINATOR: 11/14/17 0944 ADM IN [address] [place] [address]
--- NOTE | ~2017-11-13 | DS ---
PATIENT:VANNESSA HANSEN :33 MEDICAL RECORD: [id number] DISCHARGE SUMMARY ADMISSION DATE: 11/13/17 DISCHARGE DATE: 11/22/17 This is a discharge dated 11/22/2017 from inpatient rehabilitation. PRIMARY DIAGNOSIS: Decreased functional ability and ability to provide activities of daily living secondary to CHF myopathy. SECONDARY DIAGNOSES: 1. Chronic hypoxic respiratory failure. 2. COPD. 3. Congestive heart failure. 4. Coronary artery disease. 5. Atrial fibrillation. 6. Peripheral vascular disease. 7. Necrotic foot wounds. 8. Pneumonia. 9. Pulmonary nodules. 10. Hypokalemia. 11. Dysphagia. 12. Neuropathy. 13. Anxiety. 14. Macular degeneration. 15. Anemia. 16. Hyperlipidemia. 17. Nausea. HOSPITAL COURSE: Full H&P is located elsewhere on the chart on this 82-year-old female who was admitted to inpatient rehab for physical therapy and occupational therapy to improve gait, transfer skills, bed mobility, and activities of daily living to a modified independent level. She was evaluated by PT and OT and their plans of care were followed. She required [facility] care for observation and assessment and medication administration as well as wound care with necrotic foot wounds. Electrolytes were managed by protocol. She remained on supplemental oxygen and nebulized medications for respiratory support. She was on doxycycline initially for antibiotic coverage. This was changed to Levaquin with nausea that was felt might be related to the doxycycline. She was also on prednisone orally. She was cooperative with therapies, progressing towards goals. She did have daily wound care to the necrotic wounds on her feet. She had increasing pain from that with nausea and it was felt that she needed a higher level of care, so was transferred back to the acute facility. DISCHARGE MEDICATIONS: As per discharge medication reconciliation. DISCHARGE DISPOSITION: The patient is discharged back to the acute hospital. She will continue her current diet and level of activity. She will follow with primary care and specialists IN the acute hospitalist. At least 30 minutes was spent in this discharge activity. TRANSINT:[id number] Voice Confirmation ID: [id number] DOCUMENT ID: [id number] Dictated By: BREANN DEE I have interviewed/examined the above patient and agree with these documented DISCHARGE SUMMARY REPORT [id number] TYRONEVANNESSA Rubina findings. ALBARO GEIGER MD at 1157 at 0940 CC: [id number] DICTATION DATE: 12/07/17 1827 MERCURY WASHER: 12/08/17 1113 DIS IN 11/22/[address] [place] [address]
[~2017-11-13 17:12] MED LIST changes: +ATROVENT 0.02%2.5 ML UPD; +DOXYCYCLINE HY100 M2 PO; +LEVAQUIN750 MG PO; +MUCINEX600 MG PO; +PEPCID20 MG PO; +PREDNISONE20 MG PO; +PULMICORT0.5 MG/21 UPD; +TESSALON PERLE100 MG PO
[2017-11-13 17:42] VITALS: BP 139/57; BMI 22.0
[2017-11-13 19:46] VITALS: BP 139/57
[2017-11-14 06:31] LABS: BASOPHILS 0 % (0-2); EOSINOPHILS 1.9 % (0-7); HEMOGLOBIN 10.4 g/dL (12-16); IMMATURE GRANULOCYTES 0.5 % (0-5); LYMPHOCYTES 14.8 % (15-50); MCH 28.7 pg (26.0-34.0); MCHC 32.5 g/dL (31.0-37.0); MCV 88.2 fL (80.0-100.0); MEAN PLATELET VOLUME 10.3 fL (7.4-10.4); MONOCYTES 10.7 % (2-11); NEUTROPHILS 72.1 % (40-80); PLATELET COUNT 386 10x3/uL (130-400); RBC 3.63 10x6/uL (4.00-5.40); RDW 14.6 % (11.5-14.5); WBC 12.9 10x3/uL (4.8-10.8)
[2017-11-14 06:47] LABS: ANION GAP 10.5 mmol/L (8-16); CALCIUM 9.6 mg/dL (8.5-10.1); CARBON DIOXIDE 29.1 mmol/L (21.0-32.0); CREATININE - SERUM 0.8 mg/dL (0.6-1.3); POTASSIUM - SERUM 4.6 mmol/L (3.5-5.1)
[2017-11-14 08:23] VITALS: BP 122/54
[2017-11-14 11:10] VITALS: Ht 162.6 cm; Wt 58.1 kg
[2017-11-14 19:17] VITALS: BP 98/51
[2017-11-15 06:16] LABS: BASOPHILS 0 % (0-2); EOSINOPHILS 1.5 % (0-7); HEMATOCRIT 35.9 % (36.0-48.0); HEMOGLOBIN 11.7 g/dL (12-16); IMMATURE GRANULOCYTES 0.5 % (0-5); MCH 28.5 pg (26.0-34.0); MCHC 32.6 g/dL (31.0-37.0); MCV 87.6 fL (80.0-100.0); MEAN PLATELET VOLUME 10.6 fL (7.4-10.4); MONOCYTES 9.8 % (2-11); NEUTROPHILS 72.2 % (40-80); PLATELET COUNT 404 10x3/uL (130-400); RDW 14.2 % (11.5-14.5); WBC 14.1 10x3/uL (4.8-10.8)
[2017-11-15 06:26] LABS: ANION GAP 14.2 mmol/L (8-16); CALCIUM 9.5 mg/dL (8.5-10.1); CARBON DIOXIDE 27.8 mmol/L (21.0-32.0); CREATININE - SERUM 0.9 mg/dL (0.6-1.3)
[2017-11-15 08:30] VITALS: BP 130/57
[2017-11-15 20:20] VITALS: BP 130/58
[2017-11-16 08:00] VITALS: BP 94/41
[2017-11-16 20:02] VITALS: BP 106/50
[2017-11-17 09:09] VITALS: BP 94/35
[2017-11-17 21:40] VITALS: BP 113/55
[2017-11-18 07:04] LABS: BASOPHILS 0 % (0-2); EOSINOPHILS 1.3 % (0-7); HEMATOCRIT 38.1 % (36.0-48.0); HEMOGLOBIN 12.9 g/dL (12-16); IMMATURE GRANULOCYTES 0.5 % (0-5); LYMPHOCYTES 17.9 % (15-50); MCHC 33.9 g/dL (31.0-37.0); MCV 85.6 fL (80.0-100.0); MEAN PLATELET VOLUME 10.6 fL (7.4-10.4); MONOCYTES 11.7 % (2-11); NEUTROPHILS 68.6 % (40-80); PLATELET COUNT 415 10x3/uL (130-400); RBC 4.45 10x6/uL (4.00-5.40); RDW 13.7 % (11.5-14.5)
[2017-11-18 07:29] LABS: CALCIUM 9.7 mg/dL (8.5-10.1)
[2017-11-18 07:40] VITALS: BP 126/36
[2017-11-18 19:19] VITALS: BP 106/42
[2017-11-19 08:00] VITALS: BP 146/80
[2017-11-19 19:09] VITALS: BP 145/46
[2017-11-20 07:09] LABS: BASOPHILS 0.1 % (0-2); EOSINOPHILS 0.3 % (0-7); HEMATOCRIT 38.9 % (36.0-48.0); HEMOGLOBIN 13.4 g/dL (12-16); IMMATURE GRANULOCYTES 0.4 % (0-5); MCH 29.3 pg (26.0-34.0); MCHC 34.4 g/dL (31.0-37.0); MCV 85.1 fL (80.0-100.0); MEAN PLATELET VOLUME 10.8 fL (7.4-10.4); MONOCYTES 9.9 % (2-11); NEUTROPHILS 79.3 % (40-80); PLATELET COUNT 407 10x3/uL (130-400); RBC 4.57 10x6/uL (4.00-5.40); RDW 13.8 % (11.5-14.5); WBC 18.4 10x3/uL (4.8-10.8)
[2017-11-20 07:31] LABS: CALCIUM 9.5 mg/dL (8.5-10.1); CARBON DIOXIDE 33.7 mmol/L (21.0-32.0)
[2017-11-20 07:33] LABS: ANION GAP 9.3 mmol/L (8-16); CREATININE - SERUM 1.3 mg/dL (0.6-1.3)
[2017-11-20 08:00] VITALS: BP 139/55
[2017-11-20 22:07] VITALS: BP 115/61
[2017-11-21 06:52] LABS: ANION GAP 10.8 mmol/L (8-16); CALCIUM 10.4 mg/dL (8.5-10.1); CARBON DIOXIDE 34.1 mmol/L (21.0-32.0); CREATININE - SERUM 1.3 mg/dL (0.6-1.3); DIGOXIN 1.17 ng/mL (0.90-2.00)
[2017-11-21 07:11] LABS: POTASSIUM - SERUM 2.9 mmol/L (3.5-5.1)
[2017-11-21 08:00] VITALS: BP 143/88
[2017-11-21 19:09] VITALS: BP 126/56
[2017-11-22 08:00] VITALS: BP 134/57
== END 2017-11-22 12:33 | disposition short-term general hospital (02) | DRG 91 ==
LOC: D.REHAB 17:12
PROVIDERS: Emergency Medicine
DX: G72.89 Other specified myopathies (principal); J18.9 Pneumonia, unspecified organism; I50.32 Chronic diastolic (congestive) heart failure; J44.1 Chronic obstructive pulmonary disease with (acute) exacerbation; I70.263 Atherosclerosis of native arteries of extremities with gangrene, bilateral legs; I48.0 Paroxysmal atrial fibrillation; D64.9 Anemia, unspecified; I45.4 Nonspecific intraventricular block; I70.209 Unspecified atherosclerosis of native arteries of extremities, unspecified extremity; D72.829 Elevated white blood cell count, unspecified; R73.9 Hyperglycemia, unspecified; R53.81 Other malaise; E87.6 Hypokalemia; Z99.81 Dependence on supplemental oxygen; Z87.891 Personal history of nicotine dependence; M79.672 Pain in left foot; M79.671 Pain in right foot

== ENCOUNTER 2017-11-22 11:34 | Inpatient (IN) | payer MEDICARE, BC ==
[~2017-11-22] VITALS: Ht 162.6 cm; Wt 54.1 kg
[2017-11-22 13:09] VITALS: BP 141/57
[2017-11-22 14:07] VITALS: BP 141/57; BMI 22.2
[2017-11-22 16:05] LABS: HEMATOCRIT 44.1 % (36.0-48.0); HEMOGLOBIN 15.1 g/dL (12-16); MCH 30.1 pg (26.0-34.0); MCHC 34.2 g/dL (31.0-37.0); MCV 87.8 fL (80.0-100.0); PLATELET COUNT 352 10x3/uL (130-400); RBC 5.02 10x6/uL (4.00-5.40); RDW 14.1 % (11.5-14.5); WBC 26.1 10x3/uL (4.8-10.8)
[2017-11-22 16:18] LABS: ALBUMIN 3.1 g/dL (3.4-5.0); ANION GAP 7.7 mmol/L (8-16); BILIRUBIN - TOTAL 0.9 mg/dL (0.2-1.3); CALCIUM 10.4 mg/dL (8.5-10.1); CARBON DIOXIDE 34.9 mmol/L (21.0-32.0); CREATININE - SERUM 1.5 mg/dL (0.6-1.3); MAGNESIUM - SERUM 2.4 mg/dL (1.8-2.4); PHOSPHOROUS 2.9 mg/dL (2.5-4.9); PROTEIN - SERUM 6.3 g/dL (6.4-8.2)
[2017-11-22 16:19] VITALS: BP 111/46
[2017-11-22 16:19] LABS: POTASSIUM - SERUM 3.6 mmol/L (3.5-5.1)
[2017-11-22 18:15] LABS: EOSINOPHILS 3 % (0-7); LYMPHOCYTES 8 % (15-50); MONOCYTES 2 % (2-11); NEUTROPHILS 87 % (40-80); PLATELET ESTIMATE NORMAL
[2017-11-22 20:43] VITALS: BP 109/50
[2017-11-23 01:20] VITALS: BP 110/46
[2017-11-23 05:52] VITALS: BP 131/57
[2017-11-23 06:39] LABS: BASOPHILS 0 % (0-2); EOSINOPHILS 1.1 % (0-7); HEMATOCRIT 40.2 % (36.0-48.0); HEMOGLOBIN 13.4 g/dL (12-16); IMMATURE GRANULOCYTES 0.5 % (0-5); LYMPHOCYTES 10.1 % (15-50); MCH 29.3 pg (26.0-34.0); MCHC 33.3 g/dL (31.0-37.0); MEAN PLATELET VOLUME 10.8 fL (7.4-10.4); MONOCYTES 10.6 % (2-11); NEUTROPHILS 77.7 % (40-80); PLATELET COUNT 291 10x3/uL (130-400); RBC 4.57 10x6/uL (4.00-5.40); RDW 14.3 % (11.5-14.5)
[2017-11-23 06:40] LABS: WBC 19.4 10x3/uL (4.8-10.8)
[2017-11-23 06:59] LABS: CALCIUM 9.6 mg/dL (8.5-10.1); CARBON DIOXIDE 33.5 mmol/L (21.0-32.0); CREATININE - SERUM 1.3 mg/dL (0.6-1.3); POTASSIUM - SERUM 3.5 mmol/L (3.5-5.1)
[2017-11-23 08:17] VITALS: BP 120/46
[2017-11-23 11:17] VITALS: Ht 162.6 cm; Wt 54.1 kg
[2017-11-23 11:52] VITALS: BP 127/44
[2017-11-23 20:00] VITALS: BP 132/51
[2017-11-24] VITALS: BP 133/60
[2017-11-24 04:00] VITALS: BP 112/59
[2017-11-24 07:09] LABS: BASOPHILS 0.1 % (0-2); EOSINOPHILS 1.6 % (0-7); HEMATOCRIT 40.7 % (36.0-48.0); HEMOGLOBIN 13.6 g/dL (12-16); IMMATURE GRANULOCYTES 0.4 % (0-5); LYMPHOCYTES 13.9 % (15-50); MCH 29.4 pg (26.0-34.0); MCHC 33.4 g/dL (31.0-37.0); MCV 88.1 fL (80.0-100.0); MEAN PLATELET VOLUME 10.9 fL (7.4-10.4); MONOCYTES 10.5 % (2-11); NEUTROPHILS 73.5 % (40-80); PLATELET COUNT 242 10x3/uL (130-400); RBC 4.62 10x6/uL (4.00-5.40); RDW 14.2 % (11.5-14.5); WBC 18.5 10x3/uL (4.8-10.8)
[2017-11-24 07:41] LABS: ALBUMIN 2.6 g/dL (3.4-5.0); BILIRUBIN - TOTAL 0.7 mg/dL (0.2-1.3); CARBON DIOXIDE 33.3 mmol/L (21.0-32.0); POTASSIUM - SERUM 3.3 mmol/L (3.5-5.1); PROTEIN - SERUM 5.4 g/dL (6.4-8.2)
[2017-11-24 07:43] LABS: CREATININE - SERUM 0.9 mg/dL (0.6-1.3)
[2017-11-24 09:18] VITALS: BP 124/34
[2017-11-24 12:09] VITALS: BP 159/57
[2017-11-24 16:09] VITALS: BP 106/49
[2017-11-24 20:54] VITALS: BP 92/42
[2017-11-25 00:26] VITALS: BP 136/59
[2017-11-25 06:03] VITALS: BP 109/79
[2017-11-25 06:40] LABS: HEMATOCRIT 36.8 % (36.0-48.0); HEMOGLOBIN 12.3 g/dL (12-16); LYMPHOCYTES 11.2 % (15-50); MCH 29.4 pg (26.0-34.0); MCHC 33.4 g/dL (31.0-37.0); NEUTROPHILS 75.5 % (40-80); RBC 4.18 10x6/uL (4.00-5.40); RDW 14.4 % (11.5-14.5); WBC 16.6 10x3/uL (4.8-10.8)
[2017-11-25 06:41] LABS: PLATELET COUNT 182 10x3/uL (130-400)
[2017-11-25 07:06] LABS: ALBUMIN 2.3 g/dL (3.4-5.0); ANION GAP 10.8 mmol/L (8-16); BILIRUBIN - TOTAL 0.61 mg/dL (0.2-1.3); CALCIUM 8.8 mg/dL (8.5-10.1); CARBON DIOXIDE 27.9 mmol/L (21.0-32.0); CREATININE - SERUM 0.8 mg/dL (0.6-1.3); POTASSIUM - SERUM 3.7 mmol/L (3.5-5.1); PROTEIN - SERUM 4.9 g/dL (6.4-8.2)
[2017-11-25 08:21] VITALS: BP 100/57
[2017-11-25 12:09] VITALS: BP 105/40
[2017-11-25 15:32] VITALS: BP 107/42
[2017-11-25 19:52] VITALS: BP 91/37
[2017-11-26 00:01] VITALS: BP 117/79
[2017-11-26 04:17] VITALS: BP 120/47
[2017-11-26 07:14] LABS: BASOPHILS 0.1 % (0-2); EOSINOPHILS 2.6 % (0-7); HEMATOCRIT 36.2 % (36.0-48.0); HEMOGLOBIN 11.8 g/dL (12-16); IMMATURE GRANULOCYTES 0.4 % (0-5); LYMPHOCYTES 15.5 % (15-50); MCH 29.1 pg (26.0-34.0); MCHC 32.6 g/dL (31.0-37.0); MCV 89.4 fL (80.0-100.0); MEAN PLATELET VOLUME 11.3 fL (7.4-10.4); NEUTROPHILS 69.4 % (40-80); PLATELET COUNT 161 10x3/uL (130-400); RBC 4.05 10x6/uL (4.00-5.40); RDW 14.1 % (11.5-14.5); WBC 11.8 10x3/uL (4.8-10.8)
[2017-11-26 07:36] LABS: ALBUMIN 2.2 g/dL (3.4-5.0); ALKALINE PHOSPHATASE 46 U/L (46-116); ALT (SGPT) 11 U/L (10-68); BILIRUBIN - TOTAL 0.88 mg/dL (0.2-1.3); CALCIUM 8.6 mg/dL (8.5-10.1); CARBON DIOXIDE 28.2 mmol/L (21.0-32.0); CHLORIDE - SERUM 102 mmol/L (98-107); CREATININE - SERUM 0.7 mg/dL (0.6-1.3); GLUCOSE 89 mg/dL (74-106); PROTEIN - SERUM 4.8 g/dL (6.4-8.2); SODIUM 139 mmol/L (136-145); eGFR NON AFRICAN AMERICAN 85 mL/min (90-120)
[2017-11-26 07:44] LABS: CALC OSMOLALITY 276 mosm/kg (275-300); POTASSIUM - SERUM 3.1 mmol/L (3.5-5.1); UREA NITROGEN 12 mg/dL (7-18)
[2017-11-26 10:38] VITALS: BP 146/53
[2017-11-26 15:04] VITALS: BP 156/53
[2017-11-26 19:08] VITALS: BP 136/45
[2017-11-26 20:24] VITALS: BP 104/49
[2017-11-27 00:16] VITALS: BP 134/89
[2017-11-27 05:05] VITALS: BP 136/49
[2017-11-27 06:22] LABS: BASOPHILS 0.1 % (0-2); EOSINOPHILS 1.9 % (0-7); HEMATOCRIT 31.7 % (36.0-48.0); HEMOGLOBIN 10.5 g/dL (12-16); IMMATURE GRANULOCYTES 0.3 % (0-5); LYMPHOCYTES 11.7 % (15-50); MCHC 33.1 g/dL (31.0-37.0); MCV 87.6 fL (80.0-100.0); MEAN PLATELET VOLUME 11.4 fL (7.4-10.4); MONOCYTES 12.4 % (2-11); NEUTROPHILS 73.6 % (40-80); PLATELET COUNT 147 10x3/uL (130-400); RBC 3.62 10x6/uL (4.00-5.40); RDW 14.1 % (11.5-14.5); WBC 11.8 10x3/uL (4.8-10.8)
[2017-11-27 06:33] LABS: INR 1.1 (0.85-1.17); PROTIME 13.8 SECONDS (11.6-15.0)
[2017-11-27 06:35] LABS: APTT 25.9 SECONDS (22.8-39.4)
[2017-11-27 06:59] LABS: ALKALINE PHOSPHATASE 45 U/L (46-116); ALT (SGPT) 13 U/L (10-68); CALCIUM 8.4 mg/dL (8.5-10.1); CARBON DIOXIDE 26.8 mmol/L (21.0-32.0); CHLORIDE - SERUM 107 mmol/L (98-107); CREATININE - SERUM 0.7 mg/dL (0.6-1.3); GLUCOSE 90 mg/dL (74-106); PROTEIN - SERUM 4.7 g/dL (6.4-8.2); SODIUM 140 mmol/L (136-145); eGFR NON AFRICAN AMERICAN 85 mL/min (90-120)
[2017-11-27 07:07] LABS: CALC OSMOLALITY 276 mosm/kg (275-300); UREA NITROGEN 8 mg/dL (7-18)
[2017-11-27 08:40] VITALS: BP 123/81
[2017-11-27 11:43] VITALS: BP 110/44
[2017-11-27] MEDS ORDERED: PREDNISONE10 MG PO (14:24)
[2017-11-27 15:39] VITALS: BP 135/48
== END 2017-11-27 17:45 | disposition home health service (06) | DRG 391 ==
LOC: D.MS 11:34
PROVIDERS: Family Medicine; Radiology Vascular & Interventional Radiology
PROC: 0BBG3ZX Excision of Left Upper Lung Lobe, Percutaneous Approach, Diagnostic (ICD-10-PCS; principal; 2017-11-27 08:15)
DX: R11.2 Nausea with vomiting, unspecified (principal); E43 Unspecified severe protein-calorie malnutrition; I70.262 Atherosclerosis of native arteries of extremities with gangrene, left leg; N17.9 Acute kidney failure, unspecified; I50.32 Chronic diastolic (congestive) heart failure; R91.8 Other nonspecific abnormal finding of lung field; L97.529 Non-pressure chronic ulcer of other part of left foot with unspecified severity; Z68.22 Body mass index [BMI] 22.0-22.9, adult; I77.1 Stricture of artery; E87.6 Hypokalemia; R53.81 Other malaise; N18.9 Chronic kidney disease, unspecified; J44.9 Chronic obstructive pulmonary disease, unspecified; Z79.52 Long term (current) use of systemic steroids; K59.00 Constipation, unspecified; I48.91 Unspecified atrial fibrillation; E78.5 Hyperlipidemia, unspecified; I99.8 Other disorder of circulatory system